=== PATIENT | female | born 1940 | race Caucasian/White ===

== ENCOUNTER 2021-05-08 06:33 | Day surgery (SDC) | payer OTHER ==
--- NOTE | 2021-05-07 13:00 | RAD REPORT ---
EXAM DESCRIPTION: RAD - Chest Pa And Lat (2 Views) - 05/07/2021 12:43 pm CLINICAL HISTORY: PREOP Chest pain. COMPARISON: Abdomen 1 View (KUB) dated 03/19/2017; CHEST PA AND LAT 2 VIEW dated 12/14/2014 FINDINGS: Mild emphysematous changes are present. Mild focal opacity is present in the right apex, a ppearing more prominent than on comparative study. Follow-up CT chest is recommended. The heart is no rmal in size.
[2021-05-08] MEDS ORDERED: Ringers Lactate 1,000 ML IV ONE (06:59)
[2021-05-08] MEDS ORDERED: CEFAZOLIN/SWI 2gm 2 GM/20 ML SYR ONE (06:59)
[2021-05-08] MEDS ORDERED: FENTANYL CITR 100 MCG/2 ML ONE ×2 (07:44→07:50)
[2021-05-08] MEDS ORDERED: propofoL 200 MG/20 ML VIAL IV ONE (07:44)
[2021-05-08] MEDS ORDERED: LIDOCAINE 1% MPF 5 ML VIAL ONE (07:44)
[2021-05-08] MEDS ORDERED: dexAMETHasone 10 MG/ML VIAL ONE (08:19)
[2021-05-08] MEDS: HYDROMORPHONE HCL 1 MG/ML INJ ONE ×4 (08:20→08:55)
[2021-05-08] MEDS ORDERED: ONDANSETRON 4 MG/2 ML VIAL ONE (08:20)
[2021-05-08] MEDS ORDERED: ACETAMINOPHEN 325 MG TABLET ONE (08:57)
[2021-05-08] MEDS ORDERED: ACETAMINOPHEN 325 MG TABLET PO PRN (09:09)
--- NOTE | 2021-05-08 09:31 | RAD REPORT ---
EXAM DESCRIPTION: RAD - Urethrocystogrphy Retrograde - 05/08/2021 8:20 am CLINICAL HISTORY: cysto with retrograde COMPARISON: No comparisons FINDINGS: Total fluoro time: 23 seconds
[2021-05-08 10:02] VITALS: TEMP 98.1
[2021-05-08 11:19] VITALS: BP 179/64; O2SAT 100
--- NOTE | 2021-05-09 07:42 | OP ---
Date of Procedure: 05/08/2021 Surgeon: EVELIA PETERS Preoperative Diagnosis: Left hydronephrosis. Postoperative Diagnosis: Normal. Principal Procedures: 1.Cystoscopy. 2.Left retrograde pyelography. 3.[place] cystography. Indication For Procedure: Mrs. Groves presented to the Urology Clinic and saw a nurse practitioner, Mj with an ultrasound that reportedly revealed left-sided hydronephrosis. Subsequent CT imagi ng was obtained at an outside facility, whose images were unavailable for my review. Despite a CD pr ovided and attempts to upload the images both at the outpatient clinic site as well as here in the [facility], we were unable to do so; hence we relied on the report. Procedure In Detail: The patient was consented in the preoperative holding area prior to being trans ferred to operative suite where general anesthesia was induced. She was given 2 g Ancef IV antimicro bial prophylaxis and pneumo boot was provided on the left lower extremity for DVT prophylaxis. Of no te, she had cellulitis on the right lower extremity, which prohibited placement of a IMELDA hose or SCD there. She was placed in the lithotomy position, padded and secured to the table appropriately. The case was begun using a 22-Hong Konger rigid cystoscope to traverse the urethra and into the bladder with ease. The urethra was orthotopic. The urethral meatus was orthotopic in location and there were no strictures within. The bladder was entered and was completely decompressed off urine. I then backfi lled the bladder with saline and surveyed it in its entirety. The ureteral orifices were orthotopic in location bilaterally and of note, the left ureteral orifice did efflux nicely with a bolus of roxana r yellow urine. The remainder of the bladder was free of any mucosal lesions, foreign bodies, or sto kev throughout. As a result, I then cannulated the ureteral orifice with a tip of a 5-Hong Konger uretera l access catheter using a Sensor wire as a guide. A retrograde pyelogram was then performed. Left retrograde pyelography: Using a 70:30 mixture of Omnipaque and saline, contrast was injected via the lumen of the 5-Hong Konger ur eteral access catheter and did propagate up a nondilated ureter before entering a nondilated renal pe lvis with a bifid upper pole versus lower and mid pole calyceal distributions. The calices were all sharp, without any blunting or caliectasis noted. Contrast did promptly efflux from the system even between the bolus given at 7:54 a.m. and a bolus given again at 7:55 a.m. to more completely delineat e each aspect of the collecting systems, completely, especially the upper pole, which was . Some pyelovenous reflux was noted at that time, but then observation was undertaken. Over the cours e of the next 10 minutes, the left collecting system had eliminated over 50% and likely greater than 75% of the contrast was injected by qualitative assessment. No contrast was located within the renal pelvis or within the ureter and the contrast within the calices due to the pyelovenous efflux was al so eliminated within the 10 minute period leaving less than probably 20% of the contrast at that poin t. As a result, there was no evidence of any significant obstruction on the left side both anatomica lly and functionally. I then talked to assess whether there might be reflux potentially causing the hydronephrosis. I then placed a 16-Hong Konger urethral Bland catheter into her bladder and decompressed it off the fluid and urine within as well as the contrast that had collected from the left collecting system. I then backfilled her bladder with a mixture of Omnipaque and saline up to 500 cc. Throughout the filling, there was no evidence of any reflux of contrast and with the bladder completely full with 500 cc, no definitive reflux was seen and the left kidney continued to drain the remainder of the contrast. As a result, there was absolutely no sign of any obstruction or hydronephrosis to explain that seen on h er preoperative imaging at an outside facility. The patient was then awakened from general anesthesi a, transferred to a stretcher and then to the recovery room in good condition. Complications: None. 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 WR/MODL Voice ID: [id number] Report ID: [id number]
== END 2021-05-08 10:41 | disposition home or self-care (01) ==
LOC: OR 06:33
PROVIDERS: ATTEND Urology
DX: N13.30 Unspecified hydronephrosis (principal)
CPT/HCPCS: 71046; 74450; 51610; J2704; J3010; J1100; J1170 ×2; J0690; J7120; J2405

== ENCOUNTER 2023-09-24 10:30 | Day surgery (SDC) | payer OTHER ==
[2023-09-22 16:05] LABS: Protime INR 1.49
[2023-09-22 16:07] LABS: Potassium 4.6 mEq/L (3.5-5.1)
[2023-09-22 16:08] LABS: Absolute Lymphocytes (CBC) 0.8 K/uL (0.7-4.9); Hematocrit 33.6 % (36.0-45.0); Lymphocytes % 14.1 % (15.3-44.8); MCV 94.7 fL (80-100); MPV 7.2 fL (7.6-11.3); Platelets 225 thou/uL (152-406); RBC Red Blood Cell Count 3.55 M/uL (3.86-4.86)
--- NOTE | 2023-09-22 16:16 | RAD REPORT ---
EXAM DESCRIPTION: RAD - Chest Pa And Lat (2 Views) - 09/22/2023 3:52 pm CLINICAL HISTORY: Pre op pending heart catheterization Chest pain. COMPARISON: Chest Pa And Lat (2 Views) dated 05/07/2021; Abdomen 1 View (KUB) dated 03/19/2017; CHEST PA AND LAT 2 VIEW dated 12/14/2014 FINDINGS: The lungs are emphysematous but clear. The heart is mildly enlarged in size. No displaced fractures. Small hiatal hernia. IMPRESSION: Prominent diffuse COPD. The USPSTF recommends annual screening for lung cancer with low-dose CT (LDCT) in adults aged 50 to 8 0 years who have a 20 pack-year smoking history and currently smoke or have quit within the past 15 y ears.
--- NOTE | 2023-09-23 13:28 | EKG ---
Test Date: 2023-09-22 Test Time: 16:26:32 Director Summer Sessions: CHANELL MEASUREMENT RESULTS: Intervals: Rate: 62 NC: 222 QRSD: 92 QT: 426 QTc: 432 [place]: P: 90 NC: 222 QRS: 71 T: 75 INTERPRETIVE STATEMENTS: Sinus rhythm with 1st degree AV block with premature supraventricular complexes Septal infarct, age undetermined Abnormal ECG Compared to ECG 04/30/2009 18:11:19 Atrial premature complex(es) now present First degree AV block now present Myocardial infarct finding now present Sinus bradycardia no longer present Electronically Signed On 09-23-23 13:26:28 INDEPENDENT LIVING INSTRUCTOR by Carlos Lorenzana
[2023-09-24] MEDS ORDERED: VERAPAMIL HCL 10 MG/4 ML VIAL IV ONE (10:44)
[2023-09-24] MEDS ORDERED: LIDOCAINE 1% 20 ML MDV ONE (10:44)
[2023-09-24] MEDS ORDERED: MIDAZOLAM HCL 2 MG/2 ML INJ ONE (10:45)
[2023-09-24] MEDS ORDERED: FENTANYL CITR 100 MCG/2 ML ONE (10:45)
[2023-09-24] MEDS ORDERED: ATROPINE SULF 1 MG/10 ML SYR IV ONE (10:46)
[2023-09-24] MEDS ORDERED: HEPARIN 10,000 UNIT/10 ML VIAL IV ONE (10:47)
[2023-09-24] MEDS ORDERED: TICAGRELOR 90 MG TABLET PO ONE (10:48)
[2023-09-24] MEDS ORDERED: HEPA 1000U/500MLS 2,000 UNIT/1,000 ML BAG IV ONE (10:48)
[2023-09-24] MEDS ORDERED: CLOPIDOGREL 75 MG TABLET ONE (10:48)
[2023-09-24] MEDS ORDERED: HEPARIN 5000 UNIT/ML 1 ML VIAL ONE (10:50)
[2023-09-24] MEDS ORDERED: ASPIRIN 325 MG TAB ONE (10:50)
[2023-09-24] MEDS ORDERED: NA CHLORIDE 0.9% 500 ML ONE (11:19)
[2023-09-24 11:31] VITALS: TEMP 98.7
[2023-09-24] MEDS ORDERED: HYDRALAZINE HCL 20 MG/ML VIAL ONE (15:04)
--- NOTE | 2023-09-24 16:19 | OP ---
Date of Procedure: 09/24/2023 Surgeon: WILLAM ANTONIO Procedures Performed: 1.Selective coronary angiogram. 2.Left heart catheterization. 3.Right heart catheterization. Indications: Significant shortness of breath and pre-mitral valve surgery. Access: 1.Right radial artery 6-Hong Konger closed with TR band. 2.Right IJ 7-Hong Konger closed with manual pressure. Complications: None. Bleeding: Less than 20 mL. Description Of Procedure: After risks, benefits, alternatives were explained, patient agreed to proc edure, signed informed consent. Patient was brought into cardiac catheterization laboratory, prepped and draped in usual sterile fashion. Then, I accessed right radial artery using pediatric micropunc ture kit, placed a 6-Hong Konger Slender sheath and then I accessed the right IJ using micropuncture kit, ultrasound guidance, and placed a 7-Hong Konger Buckhorn sheath and then I took a 7-Hong Konger balloon-tipped [place] catheter through the IJ access into the right atrium, right ventricle, pulmonary artery and wedg e, obtained waveform and pressure and then obtained a thermodilutional cardiac output and then remove d the [place] and then took a 5-Hong Konger [place] 4.0 catheter over a J-wire through the radial access into t he aortic root, engaged the left main, then the right coronary artery, took standard views. Then the catheter was pushed over the wire to measure the LVEDP. Pullback did not record any gradient. I re moved the catheter and the sheath, placed TR band with good hemostasis. Findings: 1.Coronary angiogram. a.Left main is normal. b.LAD; proximal segment is normal. There is mild 20% to 30% mid LAD stenosis. Diagonal branch has about 30% to 40% stenosis. c.Left circumflex; small, nondominant with no significant disease. d.RCA; large and dominant with no significant disease. e.Elevated LVEDP at 15 mmHg. 2.Right heart cath: The RA pressure was 6. RV pressure was 37/2, mean of 6, and PA pressure was 32 /11, mean of 22. Pulmonary wedge pressure was 10, and LVEDP was 15 mmHg. Cardiac output was 5.93 L/ minute. Conclusion: 1.Mild nonobstructive coronary artery disease. 2.Slightly elevated filling pressures. Recommendation: Medical management. SR/MODL Voice ID: [id number] Report ID: [id number]
[2023-09-24 17:04] VITALS: BP 130/50; O2SAT 100
== END 2023-09-24 17:11 | disposition home or self-care (01) ==
LOC: CCL 10:30
PROVIDERS: ATTEND Internal Medicine
DX: I25.110 Atherosclerotic heart disease of native coronary artery with unstable angina pectoris (principal); I34.2 Nonrheumatic mitral (valve) stenosis; I48.0 Paroxysmal atrial fibrillation; I10 Essential (primary) hypertension; Z79.01 Long term (current) use of anticoagulants; Z79.899 Other long term (current) drug therapy; Z88.8 Allergy status to other drugs, medicaments and biological substances
CPT/HCPCS: 93005; 85025; 80048; 36415; 83721; 85610; 85730; 71046; 93460; 76937; C1893; Q9966; J1644; J0360; J2001; J2250; J3010; J7040; 99152; 99153; J0461

== ENCOUNTER 2023-11-08 17:25 | Inpatient (IN) | payer OTHER ==
--- NOTE | 2023-11-08 19:38 | P.HP ---
Certification for Inpatient Patient admitted to: Observation With expected LOS: <2 Midnights Practitioner: I am a practitioner with admitting privileges, knowledge of patient current condition, hospital course, and medical plan of care. Services: Services provided to patient in accordance with Admission requirements found in Title 42 Section 412.3 of the Code of Federal Regulations Patient History Date of Service: 11/09/23 Reason for admission: Rapid atrial fibrillation History of Present Illness: 83-year-old female patient with medical history significant for hypertension, chronic atrial fibrillation, hyperlipidemia, history of restless leg syndrome who came to the ED with complaint of shortness of breath, chest pain and palpitation. She was seen [facility] and she had episode of shortness of breath and rapid heartbeat and was started on rate control medication. She was transferred to [facility] for inpatient care. She follows up with wall washer Dr. Lorenzana for heart condition. On arrival to the ICU ED she was already in sinus rhythm and was chest pain-free. She denies overt episode of cough, fever, chills, rigor, nausea, vomiting. Allergies diltiazem Allergy (Verified 09/22/23 15:11) Rash hydrochlorothiazide Allergy (Verified 09/22/23 15:11) Rash indomethacin [From Indocin] Allergy (Verified 09/22/23 15:11) Heart issues niacin Allergy (Verified 09/22/23 15:11) Burning sensation all over propoxyphene [From Darvon] Allergy (Verified 09/22/23 15:11) Nausea/Vomiting Home Medications: Acetaminophen [Tylenol Extra Strength] 2 tab PO BID 05/07/21 Cyanocobalamin (Vitamin B-12) [Cyanocobalamin Injection] 1,000 mcg IJ MO 05/07/21 Famotidine [Pepcid*] 20 mg PO DAILY 05/07/21 Fluticasone Propion/Salmeterol [Airduo Digihaler 232-14 Mcg] 1 puff IH BID 05/07/21 Losartan Potassium [Cozaar*] 100 mg PO BEDTIME 05/07/21 Montelukast [Singulair*] 10 mg PO DAILY 05/07/21 Rivaroxaban [Xarelto*] 15 mg PO BEDTIME 05/07/21 Zolpidem Tartrate [Ambien*] 5 mg PO BEDTIME 05/07/21 Albuterol Sulfate [Albuterol Sulfate Hfa] 2 inh IH Q4HP PRN 11/08/23 Amlodipine [Norvasc] 2.5 mg PO DAILYPRN PRN 11/08/23 Furosemide 20 mg PO DAILY 11/08/23 Ipratropium [Atrovent 0.03% (21MCG)/[place] Nasal] 1 sprays NS DAILY 11/08/23 Potassium Chloride 10 meq PO DAILY 11/08/23 Vit D3 1 tab PO DAILY 11/08/23 levalbuterol HCL [Levalbuterol HCl] 1.25 mg IH TIDP PRN 11/08/23 methocarbamoL [Methocarbamol] 1,000 mg PO BID 11/08/23 predniSONE [Deltasone] 10 mg PO PRN PRN 11/08/23 - Family History Father -: Hypertension, Stroke Mother -: Other (see notes) Notes: COPD, tobacco user Review of Systems General: Unremarkable Eyes: Unremarkable ENT: Unremarkable Respiratory: Shortness of Breath, SOB with Excertion Cardiovascular: Chest Pain, Palpitations Gastrointestinal: Unremarkable Genitourinary: Unremarkable Musculoskeletal: Unremarkable Integumentary: Unremarkable Neurological: Unremarkable Lymphatics: Unremarkable Physical Examination - Physical Exam General: Alert, Oriented x3 HEENT: Atraumatic Respiratory: Normal air movement Cardiovascular: Regular rate/rhythm, Normal S1 S2 Gastrointestinal: Soft and benign Musculoskeletal: No swelling Neurological: Normal speech, Normal strength at 5/5 x4 extr Assessment and Plan - Plan Atrial fibrillation with rapid ventricular response: Presently patient is back in sinus rhythm while on amiodarone drip. Continue anticoagulation with Xarelto. Continue rate control medication amiodarone. Some concerns for ACS entertained, will trend troponin. Cardiology consultation placed for management recommendation. History of hypertension: Monitor vital signs per unit protocol and continue outpatient antihypertensive medications Hyperlipidemia: We will continue statin therapy. Prophylaxis: Xarelto for A-fib anticoagulation and for DVT prophylaxis. CODE STATUS: Full code. Disposition: We will treat her rapid A-fib and she was discharged in clinically stable. - Advance Directives Does patient have a Living Will: Yes Does patient have a Durable POA for Healthcare: Yes
[2023-11-08] MEDS ORDERED: AMIODARONE HCL 450 MG in D5W 241 ML IV SCH (20:00)
[2023-11-08] MEDS ORDERED: AMIODARONE IN DEXTROSE,ISO-OSM 360 MG/200 ML BAG IV SCH (20:00)
[2023-11-08] MEDS ORDERED: methocarbamoL 500 MG TAB PO SCH (21:00)
[2023-11-08] MEDS ORDERED: RIVAROXABAN 15 MG TABLET PO SCH (21:00)
[2023-11-08] MEDS ORDERED: [UNRECOGNIZED DRUG - OTHER] IH SCH (21:00)
[2023-11-08] MEDS ORDERED: SALMETEROL IH SCH (21:00)
[2023-11-08] MEDS ORDERED: LOSARTAN POTASSIUM 50 MG TABLET PO SCH ×2 (21:00)
[2023-11-08] MEDS ORDERED: ACETAMINOPHEN 500 MG TAB PO SCH (21:00)
[2023-11-08] MEDS ORDERED: ACETAMINOPHEN 500 MG TAB ONE (21:07)
[2023-11-08] MEDS ORDERED: methocarbamoL 500 MG TAB ONE (21:08)
[2023-11-08 21:58] VITALS: O2SAT 100; BMI 26.2
[2023-11-09 00:53] VITALS: TEMP 97.3
[2023-11-09] MEDS ORDERED: AMIODARONE IN DEXTROSE,ISO-OSM 360 MG/200 ML BAG IV SCH (02:05)
[2023-11-09 03:02] LABS: Specific Gravity 1.018 (1.005-1.030); Urine Bilirubin NEGATIVE (Negative); Urine Blood Negative (Negative); Urine Clarity Clear (Clear); Urine Color Light-Yellow (Yellow); Urine Glucose NEGATIVE (Negative); Urine Protein NEGATIVE (Negative); Urine Urobilinogen Normal (Normal)
[2023-11-09 04:56] VITALS: BP 155/63
[2023-11-09] MEDS ORDERED: FAMOTIDINE 20 MG TAB PO SCH (09:00)
[2023-11-09] MEDS ORDERED: MONTELUKAST 10 MG TAB PO SCH (09:00)
== END 2023-11-09 06:15 | disposition left against medical advice (07) | DRG 310 ==
LOC: 3RD-ICU 18:58
PROVIDERS: ADMIT Hospitalist; ATTEND Hospitalist
DX: I48.20 Chronic atrial fibrillation, unspecified (principal); I10 Essential (primary) hypertension; E78.5 Hyperlipidemia, unspecified; G25.81 Restless legs syndrome; Z88.8 Allergy status to other drugs, medicaments and biological substances; Z53.29 Procedure and treatment not carried out because of patient's decision for other reasons; Z79.01 Long term (current) use of anticoagulants; Z79.52 Long term (current) use of systemic steroids; Z79.899 Other long term (current) drug therapy
CPT/HCPCS: 81003; J0282

== ENCOUNTER 2024-06-25 11:09 | Emergency (ER) | payer OTHER ==
[2024-06-25] MEDS ORDERED: ASPIRIN 81 MG CHEWABLE TABLET ONE (11:33)
[2024-06-25 11:37] LABS: Absolute Eosinophils 0.2 K/uL (0-0.5); Absolute Monocytes 0.8 K/uL (0.1-1.3); Absolute Neutrophil 3.5 K/uL (1.8-8.0); Basophils % 0.3 % (0-1.3); Eosinophils % 3.2 % (0-4.4); Hematocrit 35.5 % (36.0-45.0); Hemoglobin 11.8 g/dL (12.0-15.0); MCH 31.2 pg (27.0-35.0); MCHC 33.2 g/dL (32.0-36.0); MCV 94.1 fL (80-100); MPV 7.3 fL (7.6-11.3); Monocytes % 13.9 % (3.3-12.3); Neutrophils % 63.6 % (41.7-73.7); Platelets 233 thou/uL (152-406); RBC Red Blood Cell Count 3.78 M/uL (3.86-4.86); Red Cell Distribution Width 12.4 % (12.1-15.2)
[2024-06-25 11:39] LABS: PT Prothrombin Time 23.1 SECONDS (9.4-12.5); Protime INR 2.11
[2024-06-25 11:57] LABS: ALT/SGPT 25 U/L (13-56); AST/SGOT 19 U/L (15-37); Albumin 3.8 g/dL (3.4-5.0); Albumin/Globulin Ratio 1.1 (1.1-1.8); Alkaline Phosphatase 80 U/L (45-117); Anion Gap 10.2 mEq/L (5.0-15.0); BUN Blood Urea Nitrogen 30 mg/dL (7-18); Bicarbonate 25 mEq/L (21-32); Bilirubin Total 0.5 mg/dL (0.2-1.0); Globulin 3.5 g/dL (2.3-3.5); Glomerular Filtration Rate 34 ml/min (=/>90); Glucose Level 123 mg/dL (74-106); Magnesium 2.4 mg/dL (1.6-2.4); NT PRO-BNP 2354 pg/mL (<450); Potassium 4.2 mEq/L (3.5-5.1); Protein, Total 7.3 g/dL (6.4-8.2); Sodium Level 133 mEq/L (136-145); Troponin High Sensitivity 21.1 pg/mL (<58.9)
[2024-06-25 11:59] LABS: Bilirubin Direct < 0.2 mg/dL (0-0.2); Bilirubin Indirect, Calculated 0.3 mg/dL (0.2-0.8)
--- NOTE | 2024-06-25 12:45 | RAD REPORT ---
EXAM DESCRIPTION: RADChest Single View06/25/2024 12:34 pm CLINICAL HISTORY: CHEST PAIN COMPARISON: Chest Pa And Lat (2 Views) dated 09/22/2023; Chest Pa And Lat (2 Views) dated 05/07/2021; Abdomen 1 View (KUB) dated 03/19/2017; CHEST PA AND LAT 2 VIEW dated 12/14/2014 TECHNIQUE: Portable AP view of the chest. FINDINGS: The lungs are clear, although soft tissue density related to breast implants again limits evaluation in the lung bases. No pneumothorax or effusion. The cardiomediastinal contours are unrema rkable. IMPRESSION: No acute cardiopulmonary process.
--- NOTE | 2024-06-25 12:55 | EDPHYS ---
Physician Documentation [facility] Name: Karly Groves Age: 83 yrs Sex: Female : 1940 Arrival Date: 06/25/2024 Time: 11:09 Bed 5 Private MD: ED Physician Bethel Rosas HPI: 06/25 11:53 This 83 yrs old Female presents to ER via Ambulatory with complaints of Chest Pain, ms3 Shortness Of Breath. 11:53 83-year-old female with past medical history of hypertension, atrial fibrillation ms3 presents to the emergency department for tachycardia that began at 1 AM. Patient states at that time she took 25 mg of metoprolol and amiodarone. Patient states on waking up this morning her heart rate felt irregular, she was dizzy and short of breath. Patient notes she had difficulty standing as she is weak. She states she is having chest heaviness she rates a 3/10. She denies any alleviating or inciting factors.. Historical: - Allergies: 11:25 Darvon; ld1 11:25 Diltiazem; ld1 11:25 Niacin; ld1 11:25 Hydrochlorothiazide; ld1 - Home Meds: 11:25 Xarelto oral [Active]; ld1 - PMHx: 11:25 Hypertensive disorder; Atrial fibrillation; ld1 - Immunization history:: Adult Immunizations up to date. - Infectious Disease History:: Denies. - Social history:: Smoking status: Patient denies any tobacco usage or history of. ROS: 11:53 Constitutional: Negative for fever, and chills. ms3 11:53 Abdomen/GI: Negative for abdominal pain, nausea, vomiting, diarrhea, and constipation, MS/Extremity: Negative for injury and deformity, Skin: Negative for injury, rash, and discoloration, 11:53 Cardiovascular: Positive for chest pain, palpitations, 11:53 Respiratory: Positive for shortness of breath, Exam: 11:53 Constitutional: This is a well developed, well nourished patient who is awake, alert, ms3 and in no acute distress. Chest/axilla: Normal chest wall appearance and motion. Nontender with no deformity. Cardiovascular: Regular rate and rhythm with a normal S1 and S2. No gallops, murmurs, or rubs. Normal PMI, no JVD. No pulse deficits. Respiratory: Lungs have equal breath sounds bilaterally, clear to auscultation and percussion. No rales, rhonchi or wheezes noted. No increased work of breathing, no retractions or nasal flaring. Abdomen/GI: Soft, non-tender, with normal bowel sounds. No distension or tympany. No guarding or rebound. No evidence of tenderness throughout. Skin: Warm, dry with normal turgor. Normal color with no rashes, no lesions, and no evidence of cellulitis. 11:56 ECG was reviewed by the Attending Physician. ms3 Vital Signs: 11:24 BP 173 / 77; Pulse 60; Resp 18; Temp 98.1(O); Pulse Ox 100% on R/A; Weight 73.48 kg; ld1 Height 5 ft. 4 in. ; Pain 3/10; 12:01 BP 140 / 73; Pulse 67; Resp 17; Pulse Ox 99% on R/A; rs5 13:00 BP 145 / 71; Pulse 65; Resp 18; Pulse Ox 99% on R/A; rs5 11:24 Body Mass Index 27.81 (73.48 kg, 162.56 cm) ld1 11:24 Pain Scale: Adult ld1 MDM: 11:31 Patient medically screened. ms3 11:53 Differential diagnosis: abnormal EKG, acute myocardial infarction, stable angina, ms3 unstable angina. 12:51 HEART Score: History: Slightly Suspicious (0), ECG: Normal (0), Age: > or = 65 years ms3 (2), Risk Factors: 1 or 2 risk factors (1), Troponin: < or = 1 x Normal Limit (0), Total Score = 3. The patient was given aspirin in the Emergency Department. Data reviewed: vital signs, nurses notes, lab test result(s), EKG, radiologic studies, and as a result, I will discharge patient. Consideration of Admission/Observation Escalation of care including admission/observation considered. Patient declines to stay.. Management of patient was discussed with the following: Taproom Attendant: Dr Mcadams- Patient to call office for appointment next week. I considered the following discharge prescriptions or medication management in the emergency department Medications were administered in the Emergency Department. See MAR. Independent interpretation of the following test(s) in the Emergency Department EKG: See my EKG interpretation above X-Ray: My interpretation is CXR image reviewed by me does not reveal pna. Counseling: I had a detailed discussion with the patient and/or guardian regarding the historical points, exam findings, and any diagnostic results supporting the discharge/admit diagnosis, lab results, radiology results, the need for outpatient follow up, to return to the emergency department if symptoms worsen or persist or if there are any questions or concerns that arise at home. Refusal of service: The patient/guardian displays adequate decision making capability and despite a detailed discussion of alternatives, benefits, risks, and consequences refuses: Admission to the hospital for further work-up and treatment. ED course: Discussed necessity for observation with patient and patient declines. Discussed risks of missed myocardial infarction, , disability, worsening of current condition. Patient understands and agrees with plan. Patient accepts risks. On reevaluation patient is alert, no apparent distress, nontoxic-appearing, speaking full sentences. Patient to call Dr. Mcadams's office for follow-up next week.. 06/25 11:16 Order name: Basic Metabolic Panel; Complete Time: 12:06 ms3 06/25 11:16 Order name: CBC with Diff; Complete Time: 11:50 ms3 06/25 11:16 Order name: LFT's; Complete Time: 12:06 ms3 06/25 11:16 Order name: Magnesium; Complete Time: 12:06 ms3 06/25 11:17 Order name: NT PRO-BNP; Complete Time: 12:06 ms3 06/25 11:17 Order name: PT-INR; Complete Time: 11:50 ms3 06/25 11:17 Order name: Troponin HS; Complete Time: 12:06 ms3 06/25 11:17 Order name: XRAY Chest (1 view); Complete Time: 12:48 ms3 06/25 11:17 Order name: Cardiac monitoring; Complete Time: 11:51 ms3 06/25 11:17 Order name: EKG - Nurse/Tech; Complete Time: 11:51 ms3 06/25 11:17 Order name: IV Saline Lock; Complete Time: 11: ms3 06/25 11:17 Order name: Labs collected and sent; Complete Time: 11:51 ms3 06/25 11:17 Order name: O2 Per Protocol; Complete Time: 11:51 ms3 06/25 11:17 Order name: O2 Sat Monitoring; Complete Time: 11:51 ms3 EC:56 Rate is 59 beats/min. Rhythm is regular. QRS [place] is Normal. NM interval is normal. QRS ms3 interval is normal. T waves are Peaked. Clinical impression: NSR w/ Non-specific ST/T Changes. Interpreted by me. Reviewed by me. Administered Medications: 11:30 Drug: Aspirin PO Chewable Tablet 324 mg PO once; 81 mg tablets x 4 Route: PO; rs5 12:20 Follow up: Response: No adverse reaction rs5 Disposition Summary: 06/25/24 12:54 Discharge Ordered Notes: Location: Home ms3 Condition: Stable ms3 Diagnosis - Palpitations ms3 - Chest pain, unspecified ms3 Followup: ms3 - With: Carlos Lorenzana MD - When: 2 - 3 days - Reason: Recheck today's complaints Discharge Instructions: - Discharge Summary Sheet ms3 - Nonspecific Chest Pain, Adult ms3 - Palpitations ms3 Forms: - Medication Reconciliation Form ms3 - Antibiotic Education ms3 - Prescription Opioid Use ms3 - Patient Portal Instructions ms3 - Leadership Thank You Letter ms3 Signatures: Dispatcher [employer] EDMS Bethel Rosas DO DO ms3 Kristan Rosas, RN RN ld1 Nba Collins, RN RN rs5 Corrections: (The following items were deleted from the chart) 11:17 11:17 BASIC METABOLIC PANEL+C.LAB.BRZ ordered. EDMS EDMS 11:17 11:17 CBC+H.LAB.BRZ ordered. EDMS EDMS 11:17 11:17 HEPATIC FUNCTION+C.LAB.BRZ ordered. EDMS EDMS 11:17 11:17 MAGNESIUM+C.LAB.BRZ ordered. EDMS EDMS 11:17 11:17 PROBNP+C.LAB.BRZ ordered. EDMS EDMS 11:17 11:17 PROTIME (+INR)+COAG.LAB.BRZ ordered. EDMS EDMS 11:17 11:17 Troponin High Sensitivity+C.LAB.BRZ ordered. EDMS EDMS 11:17 11:17 Chest Single View+RAD.RAD.BRZ ordered. EDMS EDMS
--- NOTE | 2024-06-25 12:55 | ER ---
Nurse's Notes [facility] Name: Karly Groves Age: 83 yrs Sex: Female : 1940 Arrival Date: 06/25/2024 Time: 11:09 Bed 5 Private MD: Diagnosis: Palpitations;Chest pain, unspecified Presentation: 06/25 11:24 Chief complaint: Patient states: Chest pain and SOB. Coronavirus screen: At this time, ld1 the client does not indicate any symptoms associated with coronavirus-19. Ebola Screen: No symptoms or risks identified at this time. Initial Sepsis Screen: Does the patient meet any 2 criteria? No. Patient's initial sepsis screen is negative. Does the patient have a suspected source of infection? No. Patient's initial sepsis screen is negative. Risk Assessment: Do you want to hurt yourself or someone else? Patient reports no desire to harm self or others. Onset of symptoms was June 25, 2024. 11:24 Method Of Arrival: Ambulatory ld1 11:24 Acuity: BRADY 3 ld1 Triage Assessment: 11:25 General: Appears in no apparent distress. uncomfortable, Behavior is calm, cooperative, ld1 appropriate for age. Pain: Complains of pain in chest Pain does not radiate. Pain currently is 3 out of 10 on a pain scale. Quality of pain is described as heavy, Pain began 2 hours ago. Is continuous. EENT: No signs and/or symptoms were reported regarding the EENT system. Neuro: Level of Consciousness is awake, alert, obeys commands, Oriented to person, place, time, situation, Appropriate for age. Cardiovascular: Capillary refill < 3 seconds Patient's skin is warm and dry. Rhythm is sinus rhythm. Respiratory: Airway is patent Respiratory effort is even, labored. Respiratory: Reports shortness of breath at rest on exertion. GI: Abdomen is round non-distended. : No signs and/or symptoms were reported regarding the genitourinary system. Derm: No signs and/or symptoms reported regarding the dermatologic system. Musculoskeletal: No signs and/or symptoms reported regarding the musculoskeletal system. Historical: - Allergies: 11:25 Darvon; ld1 11:25 Diltiazem; ld1 11:25 Niacin; ld1 11:25 Hydrochlorothiazide; ld1 - Home Meds: 11:25 Xarelto oral [Active]; ld1 - PMHx: 11:25 Hypertensive disorder; Atrial fibrillation; ld1 - Immunization history:: Adult Immunizations up to date. - Infectious Disease History:: Denies. - Social history:: Smoking status: Patient denies any tobacco usage or history of. Screenin:20 [facility] ED Fall Risk Assessment (Adult) History of falling in the last 3 months, rs5 including since admission No falls in past 3 months (0 pts) Confusion or Disorientation No (0 pts) Intoxicated or Sedated No (0 pts) Impaired Gait Yes (1 pt) Mobility Assist Device Used Yes (1 pt) Altered Elimination No (0 pt) Score/Fall Risk Level 0 - 2 = Low Risk Oriented to surroundings, Maintained a safe environment. Abuse screen: Denies threats or abuse. Nutritional screening: No deficits noted. Tuberculosis screening: No symptoms or risk factors identified. Assessment: 11:20 General: Appears in no apparent distress. uncomfortable, Behavior is cooperative, rs5 anxious. Pain: Complains of pain in chest Pain currently is 8 out of 10 on a pain scale. Quality of pain is described as aching, Is continuous. Neuro: Level of Consciousness is awake, alert, obeys commands, Oriented to person, place, time, situation. Cardiovascular: Patient's skin is warm and dry. Respiratory: Airway is patent Respiratory effort is even, unlabored, Respiratory pattern is regular, symmetrical. GI: Abdomen is round non-distended, Abd is soft and non tender X 4 quads. : No signs and/or symptoms were reported regarding the genitourinary system. EENT: No signs and/or symptoms were reported regarding the EENT system. Derm: Skin is intact, Skin is pink, warm \T\ dry. Musculoskeletal: Range of motion: intact in all extremities. 12:22 Reassessment: Patient and/or family updated on plan of care and expected duration. Pain rs5 level reassessed. Patient is alert, oriented x 3, equal unlabored respirations, skin warm/dry/pink. Patient denies pain at this time. Patient states feeling better. Patient states symptoms have improved. 13:00 Reassessment: No changes from previously documented assessment. rs5 Vital Signs: 11:24 BP 173 / 77; Pulse 60; Resp 18; Temp 98.1(O); Pulse Ox 100% on R/A; Weight 73.48 kg; ld1 Height 5 ft. 4 in. ; Pain 3/10; 12:01 BP 140 / 73; Pulse 67; Resp 17; Pulse Ox 99% on R/A; rs5 13:00 BP 145 / 71; Pulse 65; Resp 18; Pulse Ox 99% on R/A; rs5 11:24 Body Mass Index 27.81 (73.48 kg, 162.56 cm) ld1 11:24 Pain Scale: Adult ld1 ED Course: 11:12 Patient arrived in ED. ra3 11:12 Bethel Rosas DO is Attending Physician. ms3 11:16 Nba Collins, RN is Primary Nurse. rs5 11:20 Patient has correct armband on for positive identification. Placed in gown. Bed in low rs5 position. Call light in reach. Side rails up X2. Client placed on continuous cardiac and pulse oximetry monitoring. NIBP monitoring applied. 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 11:20 Inserted saline lock: 20 gauge in right antecubital area, using aseptic technique. rs5 Blood collected. Flushed with 10 mL NS. 11:20 Patient maintains SpO2 saturation greater than 95% on room air. rs5 11:20 No provider procedures requiring assistance completed. rs5 11:25 Triage completed. ld1 11:25 Arm band placed on right wrist. ld1 12:36 XRAY Chest (1 view) In Process Unspecified. EDMS 12:54 Carlos Lorenzana MD is Referral Physician. ms3 13:05 IV discontinued, intact, bleeding controlled, No redness/swelling at site. Pressure rs5 dressing applied. Administered Medications: 11:30 Drug: Aspirin PO Chewable Tablet 324 mg PO once; 81 mg tablets x 4 Route: PO; rs5 12:20 Follow up: Response: No adverse reaction rs5 Medication: 13:00 VIS not applicable for this client. rs5 Outcome: 12:54 Discharge ordered by . ms3 13:05 Discharged to home ambulatory, rs5 13:05 Condition: stable rs5 13:05 Discharge instructions given to patient, family, Instructed on discharge instructions, follow up and referral plans. Demonstrated understanding of instructions, follow-up care, 13:07 Patient left the ED. rs5 Signatures: Dispatcher [employer] EDUT Bethel Rosas DO DO ms3 Kristan Rosas, RN RN ld1 Nba Collins, RN RN rs5 Georgiana Mcfadden ra3
[2024-06-25 13:27] VITALS: BP 173/77; TEMP 98.1; O2SAT 100
--- NOTE | 2024-06-28 17:09 | EKG ---
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
== END 2024-06-25 13:07 | disposition home or self-care (01) ==
LOC: ER 11:09
DX: R07.9 Chest pain, unspecified (principal); R00.2 Palpitations; I10 Essential (primary) hypertension; I48.91 Unspecified atrial fibrillation; Z79.01 Long term (current) use of anticoagulants
CPT/HCPCS: 36415; 71045; 80048; 80076; 83735; 83880; 84484; 85025; 85610; 93005; 99284

== ENCOUNTER 2024-09-14 01:40 | Emergency (ER) | payer OTHER ==
[2024-09-14] MEDS ORDERED: ONDANSETRON 4 MG/2 ML VIAL ONE (02:08)
[2024-09-14] MEDS ORDERED: NA CHLORIDE 0.9% 1,000 ML ONE (02:09)
[2024-09-14 02:30] LABS: Absolute Eosinophils 0.1 K/uL (0-0.5); Absolute Lymphocytes (CBC) 0.6 K/uL (0.7-4.9); Absolute Monocytes 0.7 K/uL (0.1-1.3); Absolute Neutrophil 6.7 K/uL (1.8-8.0); Basophils % 0.2 % (0-1.3); Eosinophils % 1.5 % (0-4.4); Hematocrit 35.8 % (36.0-45.0); Hemoglobin 12.1 g/dL (12.0-15.0); Lymphocytes % 7.3 % (15.3-44.8); MCH 31.6 pg (27.0-35.0); MCHC 33.9 g/dL (32.0-36.0); MCV 93.1 fL (80-100); MPV 7.5 fL (7.6-11.3); Nucleated Red Blood Cells % 0.1 % (0-0); Platelets 223 thou/uL (152-406); RBC Red Blood Cell Count 3.84 M/uL (3.86-4.86); Red Cell Distribution Width 12.2 % (12.1-15.2)
[2024-09-14 02:45] LABS: Albumin 4.1 g/dL (3.4-5.0); Albumin/Globulin Ratio 1.1 (1.1-1.8); Bilirubin Total 0.9 mg/dL (0.2-1.0); Globulin 3.7 g/dL (2.3-3.5); Protein, Total 7.8 g/dL (6.4-8.2)
--- NOTE | 2024-09-14 06:03 | ER ---
Nurse's Notes [facility] Name: Karly Groves Age: 83 yrs Sex: Female : 1940 Arrival Date: 09/14/2024 Time: 01:40 Bed 23 Private MD: Diagnosis: Diarrhea, unspecified Presentation: 09/14 01:48 Chief complaint: Patient states: NAUSEA, DIARRHEA SINCE TONIGHT. ha1 01:48 Coronavirus screen: Client denies travel out of the [place] in the last 14 days. Ebola ha1 Screen: No symptoms or risks identified at this time. Initial Sepsis Screen: Does the patient meet any 2 criteria? No. Patient's initial sepsis screen is negative. Does the patient have a suspected source of infection? No. Patient's initial sepsis screen is negative. Risk Assessment: Do you want to hurt yourself or someone else? Patient reports no desire to harm self or others. Onset of symptoms was September 14, 2024. 01:48 Method Of Arrival: Wheelchair ha1 01:48 Acuity: BRADY 3 ha1 Triage Assessment: 01:48 General: Appears uncomfortable, Behavior is cooperative. Pain: Denies pain. Neuro: ha1 Level of Consciousness is awake, alert, obeys commands, Oriented to person, place, time, situation. Cardiovascular: Capillary refill < 3 seconds Patient's skin is warm and dry. Respiratory: Airway is patent Respiratory effort is even, unlabored, Respiratory pattern is regular, symmetrical. GI: Reports diarrhea, nausea. Derm: Skin is pink, warm \T\ dry. Historical: - Allergies: 01:48 Darvon; ha1 01:48 Diltiazem; ha1 01:48 hydrochlorothiazide; ha1 01:48 Niacin; ha1 - PMHx: 01:48 Atrial fibrillation; Hypertensive disorder; ha1 - Immunization history:: Adult Immunizations up to date. - Infectious Disease History:: Denies. - Social history:: Smoking status: Patient denies any tobacco usage or history of. Screenin:29 [facility] ED Fall Risk Assessment (Adult) History of falling in the last 3 months, jb4 including since admission No falls in past 3 months (0 pts) Confusion or Disorientation No (0 pts) Intoxicated or Sedated No (0 pts) Impaired Gait No (0 pts) Mobility Assist Device Used No (0 pt) Altered Elimination No (0 pt) Score/Fall Risk Level 0 - 2 = Low Risk Oriented to surroundings, Maintained a safe environment. Abuse screen: Denies threats or abuse. Nutritional screening: No deficits noted. Tuberculosis screening: No symptoms or risk factors identified. Assessment: 02:29 General: Appears in no apparent distress. uncomfortable, Behavior is calm, cooperative, jb4 appropriate for age. Pain: Denies pain. Neuro: Level of Consciousness is awake, alert, obeys commands, Oriented to person, place, time, situation. Cardiovascular: Patient's skin is warm and dry. Respiratory: Airway is patent Respiratory effort is even, unlabored, Respiratory pattern is regular, symmetrical. GI: Abdomen is round non-distended, Reports diarrhea, nausea. Derm: Skin is intact, Skin is pink, warm \T\ dry. Musculoskeletal: Circulation, motion, and sensation intact. Range of motion: intact in all extremities. 03:00 Reassessment: Patient and/or family updated on plan of care and expected duration. Pain ha1 level reassessed. Patient is alert, oriented x 3, equal unlabored respirations, skin warm/dry/pink. 04:00 Reassessment: Patient and/or family updated on plan of care and expected duration. Pain ha1 level reassessed. Patient is alert, oriented x 3, equal unlabored respirations, skin warm/dry/pink. Patient denies pain at this time. Patient states feeling better. Patient states symptoms have improved. 05:00 Reassessment: Patient and/or family updated on plan of care and expected duration. Pain ha1 level reassessed. Patient is alert, oriented x 3, equal unlabored respirations, skin warm/dry/pink. Patient denies pain at this time. Patient states feeling better. Patient states symptoms have improved. 06:00 Reassessment: Patient and/or family updated on plan of care and expected duration. Pain ha1 level reassessed. Patient is alert, oriented x 3, equal unlabored respirations, skin warm/dry/pink. Patient denies pain at this time. Patient states feeling better. Patient states symptoms have improved. 06:20 Reassessment: awaiting on ride home. family members on their way. ha1 Vital Signs: 01:48 BP 178 / 108; Pulse 68; Resp 17 S; Temp 97.8; Pulse Ox 100% on R/A; Weight 74.39 kg; ha1 Height 5 ft. 4 in. ; 03:00 BP 170 / 80; Pulse 71; Resp 17 S; Pulse Ox 99% on R/A; ha1 05:40 BP 165 / 74; Pulse 74; Resp 17 S; Pulse Ox 97% on R/A; ha1 01:48 Body Mass Index 28.15 (74.39 kg, 162.56 cm) ha1 ED Course: 01:40 Patient arrived in ED. jj6 01:41 Hernandez Godwin MD is Attending Physician. rt 01:48 Client placed on continuous cardiac and pulse oximetry monitoring. NIBP monitoring ha1 applied. 01:48 Arm band placed on right wrist. ha1 02:29 Patient has correct armband on for positive identification. Bed in low position. Call jb4 light in reach. Side rails up X 1. Provided Education on: plan of care\E\. 02:29 No provider procedures requiring assistance completed. Patient did not have IV access jb4 during this emergency room visit. 02:35 Triage completed. ha1 03:00 Report received from AZEB ROLON. ha1 03:20 Abdomen In Process Unspecified. EDMS Administered Medications: 02:20 Drug: Ondansetron IVP 4 mg IVP once; over 2 minutes Route: IVP; Site: right antecubital;jb4 03:00 Follow up: Response: No adverse reaction; Nausea is decreased ha1 02:20 Drug: NS 0.9% IV 1000 ml IV at 1 bolus Per protocol; to be given as a bolus over 60 jb4 minutes Route: IV; Rate: 1 bolus; Site: right antecubital; 04:20 Follow up: Response: No adverse reaction; IV Status: Completed infusion; IV Intake: ha1 1000ml Medication: 02:29 VIS not applicable for this client. jb4 Intake: 04:20 IV: 1000ml; Total: 1000ml. ha1 Outcome: 06:02 Discharge ordered by . rt 06:30 Condition: stable ha1 06:30 Discharge instructions given to patient, Instructed on discharge instructions, follow ha1 up and referral plans. Demonstrated understanding of instructions, follow-up care, 07:16 Discharged to home via wheelchair, with family, ha1 07:19 Patient left the ED. ha1 Signatures: Dispatcher [employer] EDMS Kennedy, Edward, RN RN jb4 Joana Rashid jj6 Angela Cheng, RN RN ha1 Hernandez Godwin MD MD rt
--- NOTE | 2024-09-14 06:04 | EDPHYS ---
Physician Documentation [facility] [place], [place] Name: Karly Groves Age: 83 yrs Sex: Female : 1940 Arrival Date: 09/14/2024 Time: 01:40 Bed 23 Private MD: ED Physician Hernandez Godwin HPI: 09/14 03:28 This 83 yrs old Female presents to ER via Wheelchair with complaints of Diarrhea. rt 03:28 Patient presents to the ED with reportedly profuse watery nonbloody diarrhea starting rt at about 9. Patient reports multiple episodes. Has an associated nausea, no vomiting, no abdominal pain. Denies other acute complaints at this time, symptoms are moderate severity, no other aggravating alleviating factors.. Historical: - Allergies: 01:48 Darvon; ha1 01:48 Diltiazem; ha1 01:48 hydrochlorothiazide; ha1 01:48 Niacin; ha1 - PMHx: 01:48 Atrial fibrillation; Hypertensive disorder; ha1 - Immunization history:: Adult Immunizations up to date. - Infectious Disease History:: Denies. - Social history:: Smoking status: Patient denies any tobacco usage or history of. ROS: 03:28 Constitutional: Negative for fever, chills, and weight loss, Cardiovascular: Negative rt for chest pain, palpitations, and edema, Respiratory: Negative for shortness of breath, cough, wheezing, and pleuritic chest pain, MS/Extremity: Negative for injury and deformity, Skin: Negative for injury, rash, and discoloration, Neuro: Negative for headache, weakness, numbness, tingling, and seizure, 03:28 Abdomen/GI: Positive for nausea, diarrhea, Exam: 03:28 Constitutional: This is a well developed, well nourished patient who is awake, alert, rt and in no acute distress. Head/Face: Normocephalic, atraumatic. Chest/axilla: Normal chest wall appearance and motion. Nontender with no deformity. No lesions are appreciated. Cardiovascular: Regular rate and rhythm with a normal S1 and S2. No gallops, murmurs, or rubs. Normal PMI, no JVD. No pulse deficits. Respiratory: Lungs have equal breath sounds bilaterally, clear to auscultation and percussion. No rales, rhonchi or wheezes noted. No increased work of breathing, no retractions or nasal flaring. Abdomen/GI: Soft, non-tender, with normal bowel sounds. No distension or tympany. No guarding or rebound. No evidence of tenderness throughout. Skin: Warm, dry with normal turgor. Normal color with no rashes, no lesions, and no evidence of cellulitis. MS/ Extremity: Pulses equal, no cyanosis. Neurovascular intact. Full, normal range of motion. Neuro: Awake and alert, GCS 15, oriented to person, place, time, and situation. Cranial nerves II-XII grossly intact. Motor strength 5/5 in all extremities. Sensory grossly intact. Cerebellar exam normal. Normal gait. Vital Signs: 01:48 BP 178 / 108; Pulse 68; Resp 17 S; Temp 97.8; Pulse Ox 100% on R/A; Weight 74.39 kg; ha1 Height 5 ft. 4 in. ; 03:00 BP 170 / 80; Pulse 71; Resp 17 S; Pulse Ox 99% on R/A; ha1 05:40 BP 165 / 74; Pulse 74; Resp 17 S; Pulse Ox 97% on R/A; ha1 01:48 Body Mass Index 28.15 (74.39 kg, 162.56 cm) 1 MDM: 01:53 Medical Screening Exam initiated rt 06:52 Differential diagnosis: Colitis, gastroenteritis, diverticulitis. Data reviewed: vital rt signs, nurses notes, lab test result(s), radiologic studies. Consideration of Admission/Observation Escalation of care including admission/observation considered. Discussed with patient findings of elevated creatinine. There was a significant delay in returning CT results. Patient stated that she did not wish to wait any longer, wish to be discharged. States that the symptoms have improved and will hydrate at home. Return precautions were discussed.. I considered the following discharge prescriptions or medication management in the emergency department Medications were administered in the Emergency Department. See MAR. Independent interpretation of the following test(s) in the Emergency Department CT Scan: My interpretation is No diverticulitis seen on interpretation of CT scan images. Care significantly affected by the following chronic conditions: Hypertension. Counseling: I had a detailed discussion with the patient and/or guardian regarding the historical points, exam findings, and any diagnostic results supporting the discharge/admit diagnosis, lab results, the need for outpatient follow up, to return to the emergency department if symptoms worsen or persist or if there are any questions or concerns that arise at home. Response to treatment: the patient's symptoms have markedly improved after treatment. 09/14 01:59 Order name: CBC with Diff; Complete Time: 02:45 rt 09/14 01:59 Order name: CMP; Complete Time: 02:45 rt 09/14 01:59 Order name: Lipase; Complete Time: 02:45 rt 09/14 03:20 Order name: Abdomen EDMS 09/14 01:59 Order name: IV Saline Lock; Complete Time: 02:29 rt 09/14 01:59 Order name: Labs collected and sent; Complete Time: 02:29 rt Administered Medications: 02:20 Drug: Ondansetron IVP 4 mg IVP once; over 2 minutes Route: IVP; Site: right antecubital;jb4 03:00 Follow up: Response: No adverse reaction; Nausea is decreased ha1 02:20 Drug: NS 0.9% IV 1000 ml IV at 1 bolus Per protocol; to be given as a bolus over 60 jb4 minutes Route: IV; Rate: 1 bolus; Site: right antecubital; 04:20 Follow up: Response: No adverse reaction; IV Status: Completed infusion; IV Intake: ha1 1000ml Disposition Summary: 09/14/24 06:02 Discharge Ordered Notes: Location: Home rt Problem: new rt Symptoms: have improved rt Condition: Stable rt Diagnosis - Diarrhea, unspecified rt Followup: rt - With: Private Physician - When: 2 - 3 days - Reason: Discharge Instructions: - Discharge Summary Sheet rt - Diarrhea, Adult rt Forms: - Medication Reconciliation Form rt - Antibiotic Education rt - Prescription Opioid Use rt - Patient Portal Instructions rt - Leadership Thank You Letter rt Signatures: Dispatcher [employer] Edward Self, RN RN jb4 Angela Cheng RN RN ha1 Hernandez Godwin MD MD rt Corrections: (The following items were deleted from the chart) 03:20 01:59 Abdomen Pelvis W Con+CT.[id number].[email or web address] ordered. EDHI EDMS
--- NOTE | 2024-09-14 06:44 | RAD REPORT ---
EXAM: CT Abdomen and Pelvis Without Intravenous Contrast CLINICAL HISTORY: The patient is 83 years old and is Female; Diarrhea. TECHNIQUE: Axial computed tomography images of the abdomen and pelvis without intravenous contrast. Sagittal and coronal reformatted images were created and reviewed. This CT exam was performed using one or more of the following dose reduction techniques: automated exposure control, adjustmen t of the mA and/or kV according to patient size, and/or use of iterative reconstruction technique. COMPARISON: XR Lumbar Spine 08/16/[address] Abdomen Pelvis 11/20/2020. FINDINGS: Lung bases: Unremarkable. No mass. No consolidation. ABDOMEN: Liver: Unremarkable. Gallbladder and bile ducts: Cholecystectomy with mild biliary dilatation and trace pneumobilia. N o choledocholithiasis visualized. Pancreas: Unremarkable. No ductal dilation. Spleen: Unremarkable. No splenomegaly. Adrenals: Unremarkable. No mass. Kidneys and ureters: Lobulated kidneys. No hydronephrosis. No ureter stone visualized. Stomach and bowel: Fluid throughout the lumen of the colon, suggesting diarrheal symptoms. No c olon wall thickening or pericolonic inflammation to suggest colitis. Colonic diverticulosis. No small bowel dilatation or obstruction. No gastric wall thickening. PELVIS: Appendix: No findings to suggest acute appendicitis. Bladder: Unremarkable. No stones. Reproductive: Hysterectomy. No adnexal mass visualized. ABDOMEN and PELVIS: Intraperitoneal space: Unremarkable. No free air. No significant fluid collection. Bones/joints: Old fractures in the left hemipelvis. Multilevel degenerative changes in spine. Sco liosis with concavity to the right. No acute fracture visualized. No dislocation. Soft tissues: Ventral abdominal wall hernias containing fat only. No evidence of edema/incarcerat ion. Previous lower abdominal wall hernia repair. Bilateral breast implants with calcified capsules, incompletely evaluated. Vasculature: Unremarkable. No abdominal aortic aneurysm. Lymph nodes: No pathologically enlarged lymph nodes. IMPRESSION: 1. Fluid throughout the lumen of the colon, suggesting diarrheal symptoms. No colon wall thickeni ng or pericolonic inflammation to suggest colitis. 2. Colonic diverticulosis. 3. Cholecystectomy with mild biliary dilatation and trace pneumobilia. No choledocholithiasis visua lized. 4. Additional non-emergent findings as above. Electronically signed by: Pearl Herrera MD 09/14/2024 06:13 AM [facility] [place] Due to temporary technical issues with the PACS/[employer] reporting system, reports are being jose david d by the in-house radiologist without review as a courtesy to ensure prompt reporting the interpreting radiologist is fully responsible for the content of the report. Transcribed Date/Time: 09/14/2024 6:44 AM
[2024-09-14 11:46] VITALS: TEMP 97.8
[2024-09-14 11:48] VITALS: BP 165/74; O2SAT 97
== END 2024-09-14 07:19 | disposition home or self-care (01) ==
LOC: ER 01:40
DX: R19.7 Diarrhea, unspecified (principal); I10 Essential (primary) hypertension; I48.91 Unspecified atrial fibrillation
CPT/HCPCS: 96361; 85025; 36415; 83690; 80053; 74176; 96374; 99284; J2405; J7030

== ENCOUNTER 2024-09-20 12:53 | Inpatient (IN) | payer OTHER ==
[2024-09-20 13:41] LABS: Absolute Eosinophils 0.2 K/uL (0-0.5); Absolute Monocytes 0.6 K/uL (0.1-1.3); Absolute Neutrophil 2.6 K/uL (1.8-8.0); Basophils % 0.4 % (0-1.3); Eosinophils % 4.7 % (0-4.4); Hematocrit 35.4 % (36.0-45.0); Hemoglobin 11.7 g/dL (12.0-15.0); Lymphocytes % 22.6 % (15.3-44.8); MCH 30.7 pg (27.0-35.0); MCV 93.2 fL (80-100); MPV 8.1 fL (7.6-11.3); Monocytes % 12.8 % (3.3-12.3); Neutrophils % 59.5 % (41.7-73.7); Platelets 196 thou/uL (152-406); Red Cell Distribution Width 12.4 % (12.1-15.2)
[2024-09-20 14:16] LABS: Magnesium 2.1 mg/dL (1.6-2.4); Troponin High Sensitivity 16.4 pg/mL (<58.9)
--- NOTE | 2024-09-20 14:40 | ER ---
Nurse's Notes [facility] Name: Karly Groves Age: 83 yrs Sex: Female : 1940 Arrival Date: 09/20/2024 Time: 12:53 Bed 13 Private MD: Diagnosis: Unspecified atrial fibrillation;Essential (primary) hypertension Presentation: 09/20 13:11 Chief complaint: Patient states: 'I've had A-fib tachycardia since Friday". Pt also aa5 reports SOB and generalized weakness. Coronavirus screen: At this time, the client does not indicate any symptoms associated with coronavirus-19. Ebola Screen: Patient denies travel to an Ebola-affected area in the 21 days before illness onset. Initial Sepsis Screen: Does the patient meet any 2 criteria? No. Patient's initial sepsis screen is negative. Does the patient have a suspected source of infection? No. Patient's initial sepsis screen is negative. Risk Assessment: Do you want to hurt yourself or someone else? Patient reports no desire to harm self or others. Onset of symptoms was August 2024. 13:11 Acuity: BRADY 3 aa5 13:11 Method Of Arrival: Wheelchair aa5 Historical: - Allergies: 13:12 Darvon; aa5 13:12 Diltiazem; aa5 13:12 hydrochlorothiazide; aa5 13:12 Niacin; aa5 - PMHx: 13:12 Atrial fibrillation; Hypertensive disorder; Kidney disease stage 4 (Unknown); aa5 13:12 CHF; aa5 - Immunization history:: Adult Immunizations up to date. - Infectious Disease History:: Denies. - Social history:: Smoking status: Patient denies any tobacco usage or history of. Screenin:15 [facility] ED Fall Risk Assessment (Adult) History of falling in the last 3 months, kc6 including since admission No falls in past 3 months (0 pts) Confusion or Disorientation No (0 pts) Intoxicated or Sedated No (0 pts) Impaired Gait No (0 pts) Mobility Assist Device Used No (0 pt) Altered Elimination No (0 pt) Score/Fall Risk Level 0 - 2 = Low Risk Oriented to surroundings, Maintained a safe environment. Abuse screen: Denies threats or abuse. Denies injuries from another. Nutritional screening: No deficits noted. Tuberculosis screening: No symptoms or risk factors identified. Assessment: 13:15 General: Appears in no apparent distress. comfortable, well groomed, well developed, kc6 Behavior is calm, cooperative, appropriate for age. Pain: Complains of pain in back. Neuro: Level of Consciousness is awake, alert, obeys commands, Oriented to person, place, time, situation, Appropriate for age. Cardiovascular: Reports palpitations, shortness of breath, Denies chest pain, Capillary refill < 3 seconds Rhythm is atrial fibrillation. Respiratory: Reports shortness of breath on exertion Airway is patent Trachea midline Respiratory effort is even, unlabored, Respiratory pattern is regular, symmetrical. GI: No signs and/or symptoms were reported involving the gastrointestinal system. : No signs and/or symptoms were reported regarding the genitourinary system. EENT: No signs and/or symptoms were reported regarding the EENT system. Derm: No signs and/or symptoms reported regarding the dermatologic system. Skin is intact, is healthy with good turgor, Skin is pink, warm \\T\\ dry. Musculoskeletal: No signs and/or symptoms reported regarding the musculoskeletal system. Circulation, motion, and sensation intact. Capillary refill < 3 seconds, Range of motion: intact in all extremities. 14:24 Reassessment: Patient appears in no apparent distress at this time. No changes from kc6 previously documented assessment. Patient and/or family updated on plan of care and expected duration. Pain level reassessed. Patient is alert, oriented x 3, equal unlabored respirations, skin warm/dry/pink. 15:24 Reassessment: Patient appears in no apparent distress at this time. No changes from kc6 previously documented assessment. Patient and/or family updated on plan of care and expected duration. Pain level reassessed. Patient is alert, oriented x 3, equal unlabored respirations, skin warm/dry/pink. 16:22 Reassessment: Patient appears in no apparent distress at this time. No changes from kc6 previously documented assessment. Patient and/or family updated on plan of care and expected duration. Pain level reassessed. Patient is alert, oriented x 3, equal unlabored respirations, skin warm/dry/pink. Vital Signs: 13:11 BP 124 / 73; Pulse 68; Resp 16 S; Temp 97.5(O); Pulse Ox 100% on R/A; Weight 72.57 kg aa5 (R); Height 5 ft. 4 in. (R); 14:24 BP 140 / 74; Pulse 83; Resp 18 S; Pulse Ox 99% on R/A; kc6 16:22 BP 138 / 95; Pulse 88; Resp 16 S; Pulse Ox 100% on R/A; kc6 13:11 Body Mass Index 27.46 (72.57 kg, 162.56 cm) aa5 ED Course: 12:56 Patient arrived in ED. ra3 12:58 Bethel Rosas DO is Attending Physician. ms3 13:11 Arm band placed on. aa5 13:12 Triage completed. aa5 13:15 Patient has correct armband on for positive identification. Placed in gown. Bed in low kc6 position. Call light in reach. Side rails up X 1. Adult w/ patient. night monitor on. Pulse ox on. NIBP on. Door closed. Noise minimized. Lights dimmed. Warm blanket given. Pillow given. 13:15 Inserted saline lock: 20 gauge in right forearm, using aseptic technique. Blood kc6 collected. Flushed with 10 mL NS. Patient maintains SpO2 saturation greater than 95% on room air. 13:25 Helga Oh, RN is Primary Nurse. kc6 14:17 XRAY Chest (1 view) In Process Unspecified. EDMS 14:39 Ayad Cason is Hospitalizing Provider. ms3 18:33 No provider procedures requiring assistance completed. Patient admitted, IV remains in kc6 place. Administered Medications: 16:21 Drug: amiodarone IVPB 150 mg 100 ml IVPB once over 10 mins; (mix in D5W) Volume: 100 kc6 ml; Route: IVPB; Infused Over: 10 mins; Site: right antecubital; 16:49 Follow up: Response: No adverse reaction; IV Status: Completed infusion; IV Intake: kc6 100ml 16:54 Drug: amiodarone IVPB 900 mg, D5W IV 500 ml IVPB at 1 mg/min continuous; for 6 hrs, kc6 then change to 0.5 mg/min Route: IVPB; Rate: 1 mg/min; Site: right antecubital; Medication: 18:33 VIS not applicable for this client. kc6 Intake: 16:49 IV: 100ml; Total: 100ml. kc6 Outcome: 14:40 Decision to Hospitalize by Provider. ms3 18:33 Admitted to Med/surg accompanied by tech, via wheelchair, room 423, with chart, kc6 18:33 Condition: stable 18:33 Instructed on the need for admit, 18:33 Patient left the ED. kc6 Signatures: Dispatcher [employer] EDMS Felicity Smiley, RN RN aa5 Bethel Rosas DO DO ms3 Helga Oh RN RN kc6 Georgiana Mcfadden ra3 Corrections: (The following items were deleted from the chart) 13:13 13:12 PMHx: A-fib (Unknown); aa5 aa5 13:16 13:11 BP 124 / 73; Pulse 68bpm; Resp 16bpm; Spontaneous; Pulse Ox 100% RA; Temp 97.5F aa5 Oral; aa5
--- NOTE | 2024-09-20 14:40 | EDPHYS ---
Physician Documentation [facility] Name: Karly Groves Age: 83 yrs Sex: Female : 1940 Arrival Date: 09/20/2024 Time: 12:53 Bed 13 Private MD: ED Physician Bethel Rosas HPI: 09/20 14:00 This 83 yrs old Female presents to ER via Wheelchair with complaints of irregular heart ms3 rate. 14:00 Karly Groves is an 83-year-old female presenting to the emergency department with ms3 symptoms persisting since Friday, which include marked weakness and shortness of breath. She describes a sensation of her heart working very hard and has monitored her own heart sounds with a stethoscope, noting irregularity. Her past medical history is notable for atrial fibrillation, which she typically maintains in sinus rhythm, asthma, stage four kidney disease, high blood pressure, congestive heart failure, and previous episodes of severe vomiting and diarrhea. She mentions having been considered for an ablation and pacemaker. Her current symptoms have not been alleviated with her usual medication regimen, including Toprolol. . Historical: - Allergies: 13:12 Darvon; aa5 13:12 Diltiazem; aa5 13:12 hydrochlorothiazide; aa5 13:12 Niacin; aa5 - PMHx: 13:12 Atrial fibrillation; Hypertensive disorder; Kidney disease stage 4 (Unknown); aa5 13:12 CHF; aa5 - Immunization history:: Adult Immunizations up to date. - Infectious Disease History:: Denies. - Social history:: Smoking status: Patient denies any tobacco usage or history of. ROS: 14:00 Constitutional: Negative for fever, and chills. ms3 14:00 Respiratory: Negative for shortness of breath, cough, wheezing, and pleuritic chest pain, Abdomen/GI: Negative for abdominal pain, nausea, vomiting, diarrhea, and constipation, MS/Extremity: Negative for injury and deformity, Skin: Negative for injury, rash, and discoloration, 14:00 Cardiovascular: Positive for palpitations, Exam: 14:00 Constitutional: This is a well developed, well nourished patient who is awake, alert, ms3 and in no acute distress. Chest/axilla: Normal chest wall appearance and motion. Nontender with no deformity. 14:00 Respiratory: Lungs have equal breath sounds bilaterally, clear to auscultation and percussion. No rales, rhonchi or wheezes noted. No increased work of breathing, no retractions or nasal flaring. Abdomen/GI: Soft, non-tender, with normal bowel sounds. No distension or tympany. No guarding or rebound. No evidence of tenderness throughout. Skin: Warm, dry with normal turgor. Normal color with no rashes, no lesions, and no evidence of cellulitis. 14:00 Cardiovascular: Rate: normal, Rhythm: irregularly irregular, Pulses: no pulse deficits are appreciated, Heart sounds: normal, normal S1and S2, 14:02 ECG was reviewed by the Attending Physician. ms3 Vital Signs: 13:11 BP 124 / 73; Pulse 68; Resp 16 S; Temp 97.5(O); Pulse Ox 100% on R/A; Weight 72.57 kg aa5 (R); Height 5 ft. 4 in. (R); 14:24 BP 140 / 74; Pulse 83; Resp 18 S; Pulse Ox 99% on R/A; kc6 16:22 BP 138 / 95; Pulse 88; Resp 16 S; Pulse Ox 100% on R/A; kc6 13:11 Body Mass Index 27.46 (72.57 kg, 162.56 cm) aa5 MDM: 13:23 Medical Screening Exam initiated ms3 14:00 Differential diagnosis: arrythmia, dehydration. ms3 22:02 Data reviewed: vital signs, nurses notes, lab test result(s), EKG, radiologic studies, ms3 and as a result, I will admit patient. Consideration of Admission/Observation Patient was admitted/placed on observation. 22:02 Management of patient was discussed with the following: Hospitalist: Dr Cason. ms3 Assistance Representative: Dr Lorenzana. I considered the following discharge prescriptions or medication management in the emergency department Medications were administered in the Emergency Department. See MAR. Independent interpretation of the following test(s) in the Emergency Department EKG: See my EKG interpretation above. Historians other than the Patient: Family Member: Patient's Niece. Counseling: I had a detailed discussion with the patient and/or guardian regarding the historical points, exam findings, and any diagnostic results supporting the discharge/admit diagnosis, lab results, radiology results, the need for further work-up and treatment in the hospital. ED course: Discussed Dr Lorenzana's plan for Amiodarone bolus and ggt with patient. Discussed with patient necessity of admission and she understands/ agrees with plan. All questions answered. Patient remained in stable condition while in the Emergency Department.. 09/20 13:24 Order name: Basic Metabolic Panel; Complete Time: 14:21 ms3 09/20 13:24 Order name: CBC with Diff; Complete Time: 14:21 ms3 09/20 13:24 Order name: Magnesium; Complete Time: 14:21 ms3 09/20 13:24 Order name: Troponin HS; Complete Time: 14:21 ms3 09/20 16:02 Order name: T4 Free EDMS 09/20 16:02 Order name: Thyroid Stimulating Hormone EDMS 09/20 16:02 Order name: Urinalysis w/ reflexes EDMS 09/20 16:02 Order name: Basic Metabolic Panel EDMS 09/20 16:02 Order name: Basic Metabolic Panel EDMS 09/20 16:02 Order name: Basic Metabolic Panel EDMS 09/20 16:02 Order name: Basic Metabolic Panel EDMS 09/20 16:02 Order name: Basic Metabolic Panel EDMS 09/20 16:02 Order name: Basic Metabolic Panel EDMS 09/20 16:02 Order name: CBC with Automated Diff EDMS 09/20 16:02 Order name: CBC with Automated Diff EDMS 09/20 16:02 Order name: CBC with Automated Diff EDMS 09/20 16:02 Order name: CBC with Automated Diff EDMS 09/20 16:02 Order name: CBC with Automated Diff EDMS 09/20 16:02 Order name: CBC with Automated Diff EDMS 09/20 16:02 Order name: Magnesium EDMS 09/20 16:02 Order name: Magnesium EDMS 09/20 16:02 Order name: Magnesium EDMS 09/20 16:02 Order name: Magnesium EDMS 09/20 16:02 Order name: Magnesium EDMS 09/20 16:02 Order name: Magnesium EDMS 09/20 16:02 Order name: Phosphorus EDMS 09/20 16:02 Order name: Phosphorus EDMS 09/20 16:02 Order name: Phosphorus EDMS 09/20 16:02 Order name: Phosphorus EDMS 09/20 16:02 Order name: Phosphorus EDMS 09/20 16:02 Order name: Phosphorus EDMS 09/20 16:02 Order name: Troponin High Sensitivity EDMS 09/20 16:02 Order name: Troponin High Sensitivity EDMS 09/20 16:02 Order name: Troponin High Sensitivity EDMS 09/20 13:24 Order name: XRAY Chest (1 view); Complete Time: 16:25 ms3 09/20 13:24 Order name: Cardiac monitoring; Complete Time: 13:25 ms3 09/20 13:24 Order name: EKG - Nurse/Tech; Complete Time: 13:43 ms3 09/20 13:24 Order name: IV Saline Lock; Complete Time: 13:43 ms3 09/20 13:24 Order name: Labs collected and sent; Complete Time: 13:43 ms3 09/20 13:24 Order name: O2 Per Protocol; Complete Time: 13:25 ms3 09/20 13:24 Order name: O2 Sat Monitoring; Complete Time: 13:25 ms3 EC:02 Rate is 79 beats/min. Rhythm is irregularly irregular. QRS [place] is Normal. QRS interval ms3 is normal. Clinical impression: Atrial Fibrillation. Interpreted by me. Reviewed by me. Administered Medications: 16:21 Drug: amiodarone IVPB 150 mg 100 ml IVPB once over 10 mins; (mix in D5W) Volume: 100 kc6 ml; Route: IVPB; Infused Over: 10 mins; Site: right antecubital; 16:49 Follow up: Response: No adverse reaction; IV Status: Completed infusion; IV Intake: kc6 100ml 16:54 Drug: amiodarone IVPB 900 mg, D5W IV 500 ml IVPB at 1 mg/min continuous; for 6 hrs, kc6 then change to 0.5 mg/min Route: IVPB; Rate: 1 mg/min; Site: right antecubital; Disposition Summary: 09/20/24 14:40 Hospitalization Ordered Notes: Hospitalization Status: Inpatient Admission ms3 Provider: Ayad Cason ms3 Condition: Stable ms3 Problem: new ms3 Symptoms: are unchanged ms3 Bed/Room Type: Standard ms3 Location: Telemetry/MedSurg (Inpatient)(09/20/24 15:28) ms3 Room Assignment: 423(09/20/24 17:00) bc6 Diagnosis - Unspecified atrial fibrillation ms3 - Essential (primary) hypertension ms3 Forms: - Medication Reconciliation Form ms3 - SBAR form ms3 - Leadership Thank You Letter ms3 Critical care time excluding procedures: 22:02 Critical care time: Bedside Care: 35 minutes, Consultation: 5 minutes, Family ms3 Intervention: 5 minutes. Total time: 45 minutes Signatures: Dispatcher [employer] EDFelicity Guerrero, RN RN aa5 Bethel Rosas, DO ms3 Helga Oh RN RN kc6 Shira Hayes bc6 Corrections: (The following items were deleted from the chart) 13:13 13:12 PMHx: A-fib (Unknown); aa5 aa5 13:24 13:24 Chest Single View+RAD.RAD.[email or web address] ordered. EDMS EDMS 15:28 14:40 Intensive Care Unit ms3 ms3 15:28 14:40 ms3 ms3 17:00 15:28 ms3 bc6
--- NOTE | 2024-09-20 15:42 | RAD REPORT ---
EXAMINATION: ONE VIEW CHEST XR CLINICAL INDICATION: Female, 83 years old.,PALPITATIONS TECHNIQUE: Frontal chest projection is submitted. Examination is limited by patient positioning and t echnique. COMPARISON: 06/25/2024 FINDINGS: The lungs are clear with some hyperlucency suggesting COPD. No pneumothorax or sizable effusion. The heart is normal in size. Mediastinal contours are unremarkable. Superimposition breast implants with capsular calcifications again partially limits evaluation of the lung bases. IMPRESSION: No acute intrathoracic abnormalities.
[2024-09-20] MEDS ORDERED: AMIODARONE HCL 150 MG/3 ML INJ IV ONE (16:10)
[2024-09-20] MEDS ORDERED: AMIODARONE IN DEXTROSE,ISO-OSM 0 MG/0 ML BAG IV ONE (16:10)
[2024-09-20] MEDS ORDERED: NA CHLORIDE 0.9% 100 ML ONE (16:10)
[2024-09-20] MEDS: AMIODARONE HCL 150 MG in D5W 100 ML IV STA (16:19)
--- NOTE | 2024-09-20 17:40 | P.HP ---
Certification for Inpatient Patient admitted to: Observation With expected LOS: <2 Midnights Patient will require the following post-hospital care: None Practitioner: I am a practitioner with admitting privileges, knowledge of patient current condition, hospital course, and medical plan of care. Services: Services provided to patient in accordance with Admission requirements found in Title 42 Section 412.3 of the Code of Federal Regulations Patient History Date of Service: 09/20/24 Reason for admission: symptomatic Afib History of Present Illness: Karly Groves is an 83 year old female with Pmhx HTN, CHF, Afib, Asthma, Stage 4 kidney disease who presented to the ED with irregular heart rhythm. She has a history of Atrial fibrillation and was taken off amiodarone more than a year ago, she was tolerating metoprolol well. Friday at 11 Am she started to feel short of breath, dizziness, weakness, with heart palpitations. She listened to her heart with her stethescope and heard the irregular rhythm. EKG showing Afib with controlled heart rate of 79. Laboratory evaluation significant for BUN/creatinine 22/1.8, GFR 28, NA 133, Trop 16.4. Chest xray reports "no acute intrathoracic abnormalities." Karly will be admitted to hospitalist service for further treatment of symptomatic Afib, Cardiology consulted. Allergies diltiazem Allergy (Verified 09/22/23 15:11) Rash hydrochlorothiazide Allergy (Verified 09/22/23 15:11) Rash indomethacin [From Indocin] Allergy (Verified 09/22/23 15:11) Heart issues niacin Allergy (Verified 09/22/23 15:11) Burning sensation all over propoxyphene [From Darvon] Allergy (Verified 09/22/23 15:11) Nausea/Vomiting Home Medications: Acetaminophen [Tylenol Extra Strength] 2 tab PO BID 05/07/21 Cyanocobalamin (Vitamin B-12) [Cyanocobalamin Injection] 1,000 mcg IJ MO 05/07/21 Famotidine [Pepcid*] 20 mg PO DAILY 05/07/21 Fluticasone Propion/Salmeterol [Airduo Digihaler 232-14 Mcg] 1 puff IH BID 05/07/21 Losartan Potassium [Cozaar*] 100 mg PO BEDTIME 05/07/21 Montelukast [Singulair*] 10 mg PO DAILY 05/07/21 Rivaroxaban [Xarelto*] 15 mg PO BEDTIME 05/07/21 Zolpidem Tartrate [Ambien*] 5 mg PO BEDTIME 05/07/21 Albuterol Sulfate [Albuterol Sulfate Hfa] 2 inh IH Q4HP PRN 11/08/23 Amlodipine [Norvasc] 2.5 mg PO DAILYPRN PRN 11/08/23 Furosemide 20 mg PO DAILY 11/08/23 Ipratropium [Atrovent 0.03% (21MCG)/[place] Nasal] 1 sprays NS DAILY 11/08/23 Potassium Chloride 10 meq PO DAILY 11/08/23 Vit D3 1 tab PO DAILY 11/08/23 levalbuterol HCL [Levalbuterol HCl] 1.25 mg IH TIDP PRN 11/08/23 methocarbamoL [Methocarbamol] 1,000 mg PO BID 11/08/23 predniSONE [Deltasone] 10 mg PO PRN PRN 11/08/23 - Past Medical/Surgical History Diabetic: No -: afibrillation -: CHF -: chronic kidney Dis -: Htn -: Osteoporosis -: Partial Small Bowel Obstruction -: 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 -: Chronic back pain - Family History Father -: Hypertension, Stroke Mother -: Other (see notes) Notes: COPD, tobacco user - Social History Smoking Status: Never smoker Alcohol use: Yes CD- Drugs: No Caffeine use: Yes Review of Systems Respiratory: Shortness of Breath Cardiovascular: Palpitations Neurological: Other (dizziness) Physical Examination - Physical Exam General: Alert, In no apparent distress, Oriented x3 HEENT: Atraumatic, Normocephalic, PERRLA Neck: Supple, 2+ carotid pulse no bruit Respiratory: Clear to auscultation bilaterally, Normal air movement Cardiovascular: Normal pulses, Normal S1 S2, Irregular heart rate/rhythm Capillary refill: <2 Seconds Gastrointestinal: Normal bowel sounds, Soft and benign Musculoskeletal: No clubbing Integumentary: No rashes Neurological: Normal speech, Normal tone - Studies Laboratory Data (last 24 hrs) 09/20/24 09/20/24 13:32 13:32 WBC 4.40 Hgb 11.7 L Hct 35.4 L Plt Count 196 Sodium 133 L Potassium 4.0 BUN 22 H Creatinine 1.81 H Glucose 106 Magnesium 2.1 Assessment and Plan - Plan Assessment and Plan Symptomatic Atrial fibrillation CHF -Continuous telemetry -Amiodarone drip, titrate PRN -Continue xarelto -Cardiology consulted, NPO at midnight -troponin 16.4, Serial pending -TSH/Free T 4 pending -supportive care for dizziness Stage 4 Kidney disease -BUN/Creatinine 22/1.81, GFR 28 -monitor in AM labs HTN Asthma -Continue home medications DVT ppx xarleto full code LOS 24 hour OBS Discharge Plan: Home Plan to discharge in: 24 Hours - Advance Directives Does patient have a Living Will: No Does patient have a Durable POA for Healthcare: No
[2024-09-20 19:51] VITALS: O2SAT 100
[2024-09-20] MEDS: RIVAROXABAN 15 MG TABLET PO SCH (21:52)
[2024-09-20] MEDS: MORPHINE 2 MG/ML SYR IV PRN (21:53)
[2024-09-20 23:12] VITALS: BMI 27.4
[2024-09-21] MEDS: HYDROCODONE/APAP 5/325 MG TAB PO PRN (02:39)
[2024-09-21 06:33] LABS: Absolute Eosinophils 0.2 K/uL (0-0.5); Absolute Lymphocytes (CBC) 1.5 K/uL (0.7-4.9); Absolute Monocytes 0.7 K/uL (0.1-1.3); Absolute Neutrophil 2.5 K/uL (1.8-8.0); Basophils % 0.4 % (0-1.3); Eosinophils % 4.6 % (0-4.4); Hematocrit 31.6 % (36.0-45.0); Hemoglobin 10.8 g/dL (12.0-15.0); Lymphocytes % 30.1 % (15.3-44.8); MCH 31.4 pg (27.0-35.0); MCHC 34.1 g/dL (32.0-36.0); MCV 92.1 fL (80-100); MPV 7.7 fL (7.6-11.3); Monocytes % 14.6 % (3.3-12.3); Neutrophils % 50.3 % (41.7-73.7); Nucleated Red Blood Cells % 0.1 % (0-0); Platelets 203 thou/uL (152-406); RBC Red Blood Cell Count 3.43 M/uL (3.86-4.86); Red Cell Distribution Width 12.2 % (12.1-15.2)
[2024-09-21 07:03] LABS: Magnesium 2.2 mg/dL (1.6-2.4); Phosphorus 3.6 mg/dL (2.5-4.9); Thyroid Stimulating Hormone 3.41 uIU/mL (0.358-3.740); Troponin High Sensitivity 20.7 pg/mL (<58.9)
[2024-09-21] MEDS: FLU (Fluarix Triv) TS24-25(6MOS UP)/PF 45 MCG/0.5 ML Syringe IM ONE (08:00)
[2024-09-21] MEDS: methocarbamoL 500 MG TAB PO SCH ×2 (09:07→20:52)
[2024-09-21] MEDS: ONDANSETRON 4 MG (ODT) TAB PO PRN (09:08)
[2024-09-21] MEDS: methocarbamoL 500 MG TAB ONE (09:08)
[2024-09-21] MEDS: AMIODARONE HCL 900 MG in Dextrose 5%-Water 482 ML IV SCH (09:13)
[2024-09-21] MEDS: ACETAMINOPHEN 500 MG TAB PO SCH (09:33)
--- NOTE | 2024-09-21 10:41 | P.CNS ---
Date of Consult: 09/21/24 Chief Complaint: symptomatic Afib History of Present Illness: Patient with PMH of atrial fibrillation, HTN presented with palpitations, no syncope, no chest pain, no SOB. Allergies diltiazem Allergy (Verified 09/22/23 15:11) Rash hydrochlorothiazide Allergy (Verified 09/22/23 15:11) Rash indomethacin [From Indocin] Allergy (Verified 09/22/23 15:11) Heart issues niacin Allergy (Verified 09/22/23 15:11) Burning sensation all over propoxyphene [From Darvon] Allergy (Verified 09/22/23 15:11) Nausea/Vomiting Home medications list reviewed: Yes Home Medications: Acetaminophen [Tylenol Extra Strength] 2 tab PO BID 05/07/21 Cyanocobalamin (Vitamin B-12) [Cyanocobalamin Injection] 1,000 mcg IJ MO 05/07/21 Famotidine [Pepcid*] 20 mg PO DAILY 05/07/21 Fluticasone Propion/Salmeterol [Airduo Digihaler 232-14 Mcg] 1 puff IH BID 05/07/21 Losartan Potassium [Cozaar*] 50 mg PO BEDTIME 05/07/21 Montelukast [Singulair*] 10 mg PO DAILY 05/07/21 Rivaroxaban [Xarelto*] 15 mg PO BEDTIME 05/07/21 Zolpidem Tartrate [Ambien*] 5 mg PO BEDTIME 05/07/21 Albuterol Sulfate [Albuterol Sulfate Hfa] 2 inh IH Q4HP PRN 11/08/23 Amlodipine [Norvasc] 2.5 mg PO DAILYPRN PRN 11/08/23 Furosemide 20 mg PO DAILY 11/08/23 Ipratropium [Atrovent 0.03% (21MCG)/[place] Nasal] 1 sprays NS DAILY 11/08/23 Potassium Chloride 10 meq PO DAILY 11/08/23 Vit D3 1 tab PO DAILY 11/08/23 levalbuterol HCL [Levalbuterol HCl] 1.25 mg IH TIDP PRN 11/08/23 methocarbamoL [Methocarbamol] 500 mg PO BID 11/08/23 predniSONE [Deltasone] 10 mg PO PRN PRN 11/08/23 Metoprolol Tartrate [Lopressor*] 25 mg PO BID 09/20/24 - Past Medical/Surgical History Diabetic: No -: afibrillation -: CHF -: chronic kidney Dis -: Htn -: Osteoporosis -: Partial Small Bowel Obstruction -: 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 moist/pink, EOMI, Sclerae nonicteric Neck: Supple, 2+ carotid pulse no bruit, No LAD, Without JVD or thyroid a bnormality Respiratory: Clear to auscultation bilaterally, Normal air movement Cardiovascular: Irregular heart rate/rhythm Gastrointestinal: Normal bowel sounds, No tenderness Musculoskeletal: No tenderness Integumentary: No rashes Neurological: Normal gait, Normal speech, Normal tone, Normal affect Lymphatics: No axilla or inguinal lymphadenopathy Laboratory Data (last 24 hrs) 09/20/24 09/20/24 13:32 13:32 WBC 4.40 Hgb 11.7 L Hct 35.4 L Plt Count 196 Sodium 133 L Potassium 4.0 BUN 22 H Creatinine 1.81 H Glucose 106 Magnesium 2.1 - Problems (1) Atrial fibrillation Current Visit: Yes Status: Acute Plan: patient was on amiodarone now before and was stopped due to worsening pulmonary function, also she did not tolerate sotalol in the past due to reaction to it. continue drip for now, ROBERT DCCV today switch to amiodarone 200 mg po BID after drip is over. continue Xarelto. (2) HTN (hypertension) Current Visit: Yes Status: Acute Plan: continue patient current medications and monitor.
[2024-09-21] MEDS: ACETAMINOPHEN 325 MG TABLET PO PRN (15:25)
[2024-09-21] MEDS: methocarbamoL 500 MG TAB PO ONE (15:25)
--- NOTE | 2024-09-21 16:12 | P.PN ---
Date of Service: 09/21/24 Subjective Awake, c/o chronic back pain Restarted home robaxin/tylenol ROBERT cardioveion scheduled today is now moved to tomorrow ROS 10 point ROS as noted above, otherwise negative Physical Exam General: Alert and Oriented x3, NAD HEENT: Atraumatic, Normocephalic, PERRLA Neck: Supple, 2+ carotid pulse no bruit Respiratory: Clear to auscultation bilaterally, Normal air movement, on RA Cardiovascular: Normal pulses, Normal S1 S2, Irregular heart rhythm with rate control Capillary refill: <2 Seconds Gastrointestinal: Normal bowel sounds, Soft and benign Musculoskeletal: No clubbing Integumentary: No rashes Neurological: Normal speech, Normal tone Vitals Reviewed Problem list Symptomatic Atrial fibrillation CHF Stage 4 Kidney disease Chronic Back pain HTN Asthma Assessment and Plan Symptomatic Atrial fibrillation CHF -Continuous telemetry -Amiodarone drip transitioned to Amio PO 200 mg BID -continues in Afib with rate control -Continue xarelto -Cardiology consulted, NPO at midnight -troponin 16.4, 20.7 -TSH/Free T 4 pending -supportive care for dizziness -ROBERT with cardioversion in the AM Stage 4 Kidney disease -BUN/Creatinine 24/1.58, GFR 33 -monitor in AM labs Chronic Back pain -continue home medications HTN Asthma -Continue home medications DVT ppx xarleto full code LOS 24 hour OBS Discharge Plan: Home Plan to discharge in: 24 Hours
[2024-09-21] MEDS: AMIODARONE HCL 200 MG TAB PO SCH (20:52)
[2024-09-22] MEDS: NA CHLORIDE 0.9% 500 ML ONE (06:57)
[2024-09-22] MEDS: MORPHINE 4 MG/ML SYR ONE (07:31)
[2024-09-22] MEDS ORDERED: LIDOCAINE 1% MPF 5 ML VIAL ONE (08:02)
[2024-09-22] MEDS ORDERED: propofoL 200 MG/20 ML VIAL IV ONE (08:02)
[2024-09-22 09:16] LABS: Absolute Eosinophils 0.3 K/uL (0-0.5); Absolute Lymphocytes (CBC) 1.4 K/uL (0.7-4.9); Absolute Monocytes 0.7 K/uL (0.1-1.3); Basophils % 0.5 % (0-1.3); Eosinophils % 4.9 % (0-4.4); Hematocrit 33.1 % (36.0-45.0); Hemoglobin 11.4 g/dL (12.0-15.0); Lymphocytes % 25.9 % (15.3-44.8); MCH 31.7 pg (27.0-35.0); MCHC 34.5 g/dL (32.0-36.0); MCV 92.1 fL (80-100); MPV 7.5 fL (7.6-11.3); Monocytes % 13.3 % (3.3-12.3); Neutrophils % 55.4 % (41.7-73.7); Nucleated Red Blood Cells % 0.2 % (0-0); Platelets 225 thou/uL (152-406); RBC Red Blood Cell Count 3.59 M/uL (3.86-4.86); Red Cell Distribution Width 12.5 % (12.1-15.2)
[2024-09-22 09:32] LABS: Albumin 3.4 g/dL (3.4-5.0); Albumin/Globulin Ratio 1.2 (1.1-1.8); Anion Gap 6.1 mEq/L (5.0-15.0); Bilirubin Total 0.6 mg/dL (0.2-1.0); Globulin 2.9 g/dL (2.3-3.5); Magnesium 2.2 mg/dL (1.6-2.4); Phosphorus 3.6 mg/dL (2.5-4.9); Potassium 4.1 mEq/L (3.5-5.1); Protein, Total 6.3 g/dL (6.4-8.2)
--- NOTE | 2024-09-22 12:36 | P.PN ---
Subjective Date of Service: 09/22/24 Chief Complaint: symptomatic Afib Subjective: No new changes, No C/O voiced, Tolerating diet, Ambulating, Improving Review of Systems 10-point ROS is otherwise unremarkable Physical Examination - Vital Signs Temperature: 98.6 F Blood Pressure: 142/72 Pulse: 58 Respirations: 16 Pulse Ox (%): 100 - Physical Exam General: Alert, In no apparent distress HEENT: Atraumatic, PERRLA, EOMI Neck: Supple, JVD not distended Respiratory: Clear to auscultation bilaterally, Normal air movement Cardiovascular: Regular rate/rhythm, Normal S1 S2 Gastrointestinal: Normal bowel sounds, No tenderness Musculoskeletal: No tenderness Integumentary: No rashes Neurological: Normal speech, Normal tone, Normal affect Lymphatics: No axilla or inguinal lymphadenopathy - Studies Medications List Reviewed: Yes Assessment And Plan - Current Problems (Diagnosis) (1) Atrial fibrillation Current Visit: Yes Status: Acute Plan: patient was on amiodarone now before and was stopped due to worsening pulmonary function, also she did not tolerate sotalol in the past due to reaction to it. ROBERT DCCV done today and patient is in sinus rhythm amiodarone 200 mg po BID for 1 month then continue 200 mg daily. continue Xarelto. (2) HTN (hypertension) Current Visit: Yes Status: Acute Plan: continue patient current medications and monitor.
--- NOTE | 2024-09-22 12:40 | P.DS ---
Admission Date: 09/21/24 Discharge Date: 09/22/24 Disposition: ROUTINE DISCHARGE Discharge Condition: GOOD Reason for Admission: symptomatic Afib Consultations: Cardiology-Dr. Mcadams Procedures: ROBERT cardioversion Brief History of Present Illness: Karly Groves is an 83 year old female with Pmhx HTN, CHF, Afib, Asthma, Stage 4 kidney disease who presented to the ED with irregular heart rhythm. She has a history of Atrial fibrillation and was taken off amiodarone more than a year ago, she was tolerating metoprolol well. Friday at 11 Am she started to feel short of breath, dizziness, weakness, with heart palpitations. She listened to her heart with her stethescope and heard the irregular rhythm. EKG showing Afib with controlled heart rate of 79. Laboratory evaluation significant for BUN/creatinine 22/1.8, GFR 28, NA 133, Trop 16.4. Chest xray reports "no acute intrathoracic abnormalities." Karly will be admitted to hospitalist service for further treatment of symp tomatic Afib, Cardiology consulted. Hospital Course: Problem list Symptomatic Atrial fibrillation CHF Stage 4 Kidney disease Chronic Back pain HTN Asthma Patient was admitted to the hospital for symptomatic atrial fibrillation. She underwent ROBERT cardioversion which was successful first attempt with 200 J. She was loaded and started on amiodarone during her hospitalization and will be prescribed amiodarone 200 mg by mouth twice daily for 1 month followed by milligrams once daily after that. She has done well after her cardioversion, maintained sinus rhythm Follow-up with your primary care doctor 1 to 2 weeks Please also follow-up with cardiology in 1 to 2 weeks Vital Signs/Physical Exam: Temp Pulse Resp BP Pulse Ox 98.6 F 58 16 142/72 H 100 09/22/24 12:36 09/22/24 12:36 09/22/24 12:36 09/22/24 12:36 09/22/24 12:36 General: Alert, In no apparent distress, Oriented x3 HEENT: Atraumatic, PERRLA Neck: Supple, JVD not distended Respiratory: Clear to auscultation bilaterally, Normal air movement Cardiovascular: Regular rate/rhythm, Normal S1 S2 Gastrointestinal: Normal bowel sounds, No tenderness Musculoskeletal: No tenderness Integumentary: No rashes Neurological: Normal speech, Normal affect Laboratory Data at Discharge: WBC 5.50 thou/uL (4.3-10.9) 09/22/24 09:04 Hgb 11.4 g/dL (12.0-15.0) L 09/22/24 09:04 Hct 33.1 % (36.0-45.0) L 09/22/24 09:04 Plt Count 225 thou/uL (152-406) 09/22/24 09:04 Sodium 137 mEq/L (136-145) 09/22/24 09:04 Potassium 4.1 mEq/L (3.5-5.1) 09/22/24 09:04 BUN 18 mg/dL (7-18) 09/22/24 09:04 Creatinine 1.56 mg/dL (0.55-1.02) H 09/22/24 09:04 Glucose 105 mg/dL (74-106) 09/22/24 09:04 Phosphorus 3.6 mg/dL (2.5-4.9) 09/22/24 09:04 Magnesium 2.2 mg/dL (1.6-2.4) 09/22/24 09:04 Total Bilirubin 0.6 mg/dL (0.2-1.0) 09/22/24 09:04 AST 18 U/L (15-37) 09/22/24 09:04 ALT 20 U/L (13-56) 09/22/24 09:04 Alkaline Phosphatase 61 U/L (45-117) 09/22/24 09:04 Home Medications: Acetaminophen [Tylenol Extra Strength] 2 tab PO BID 05/07/21 Cyanocobalamin (Vitamin B-12) [Cyanocobalamin Injection] 1,000 mcg IJ MO 04/19 07/10 Famotidine [Pepcid*] 20 mg PO DAILY 05/07/21 Fluticasone Propion/Salmeterol [Airduo Digihaler 232-14 Mcg] 1 puff IH BID 05/07/21 Losartan Potassium [Cozaar*] 50 mg PO BEDTIME 05/07/21 Montelukast [Singulair*] 10 mg PO DAILY 05/07/21 Rivaroxaban [Xarelto*] 15 mg PO BEDTIME 05/07/21 Zolpidem Tartrate [Ambien*] 5 mg PO BEDTIME 05/07/21 Albuterol Sulfate [Albuterol Sulfate Hfa] 2 inh IH Q4HP PRN 11/08/23 Amlodipine [Norvasc*] 2.5 mg PO DAILYPRN PRN 11/08/23 Furosemide 20 mg PO DAILY 11/08/23 Ipratropium [Atrovent 0.03% (21MCG)/[place] Nasal*] 1 sprays NS DAILY 11/08/23 Potassium Chloride 10 meq PO DAILY 11/08/23 Vit D3 1 tab PO DAILY 11/08/23 levalbuterol HCL [Levalbuterol HCl] 1.25 mg IH TIDP PRN 11/08/23 methocarbamoL [Methocarbamol] 500 mg PO BID 11/08/23 predniSONE [Prednisone*] 10 mg PO PRN PRN 11/08/23 Metoprolol Tartrate [Lopressor*] 25 mg PO BID 09/20/24 Amiodarone HCl [Cordarone*] 200 mg PO BID 30 Days #60 tab 09/22/24 New Medications: Amiodarone HCl [Cordarone*] 200 mg PO BID 30 Days #60 tab Physician Discharge Instructions: Patient was admitted to the hospital for symptomatic atrial fibrillation. She underwent ROBERT cardioversion which was successful first attempt with 200 J. She was loaded and started on amiodarone during her hospitalization and will be prescribed amiodarone 200 mg by mouth twice daily for 1 month followed by milligrams once daily after that. She has done well after her cardioversion, maintained sinus rhythm Follow-up with your primary care doctor 1 to 2 weeks Please also follow-up with cardiology in 1 to 2 weeks Diet: AHA Activity: Fall precautions Followup: Harshal Mcadams MD [ACTIVE - CAN ADMIT] - 1-2 Weeks Sun Price MD [Primary Care Provider] - 1 Week Time spent managing pt's care (in minutes): 41
--- NOTE | 2024-09-22 14:54 | TEE ---
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 NORMAL LEFT ATRIAL APPENDAGE, NO THROMBUS 2. MILD MITRAL REGURGITATION. 3. PATIENT FORAMEN OVALE. TECHNOLOGIST: DR. FONG/ MARIANNA MATOS
[2024-09-22] MEDS: methocarbamoL 500 MG TAB PO ONE (15:17)
[2024-09-22 16:14] VITALS: BP 157/69; TEMP 98.8
--- NOTE | 2024-09-23 20:30 | OP ---
Date of Procedure: 09/22/2024 Surgeon: Harshal Mcadams Procedure Performed: Transesophageal echocardiogram synchronized cardioversion. Indication For Procedure: Atrial fibrillation. Complications: None. Estimated Blood Loss: None. Sedation: Done by Anesthesia team. Description Of Procedure: After risks, benefits, and alternatives were explained to the patient, the patient agreed to proceed with procedure and signed informed consent. The patient was brought back to the OR. Time-out was performed. Sedation was administered by Anesthesia Team. Next, ROBERT probe w as inserted. Images were obtained and the ROBERT probe was out. Next, synchronized cardioversion was d one with 200 joules. The patient was converted back into sinus rhythm. The patient was moved back t o recovery in stable condition. Assessment And Plan: Atrial fibrillation, status post successful transesophageal echocardiogram card ioversion. Plan will be to: 1.Continue amiodarone 200 b.i.d. for 1 month and continue amiodarone 200 daily. 2.Continue Xarelto. KIKA/SAMI Voice ID: [id number] Report ID: [id number]
== END 2024-09-22 16:15 | disposition home or self-care (01) | DRG 309 ==
LOC: ER 12:53 → ERHOLD 15:43 → 4TH 18:21 → OBSVTOIN 09-21 15:34
PROVIDERS: ADMIT Internal Medicine; ATTEND Hospitalist
PROC: B24BZZ4 Ultrasonography of Heart with Aorta, Transesophageal (ICD-10-PCS; principal; 2024-09-21)
PROC: 5A2204Z Restoration of Cardiac Rhythm, Single (ICD-10-PCS; 2024-09-21)
DX: I48.91 Unspecified atrial fibrillation (principal); I13.0 Hypertensive heart and chronic kidney disease with heart failure and stage 1 through stage 4 chronic kidney disease, or unspecified chronic kidney disease; N18.4 Chronic kidney disease, stage 4 (severe); I50.9 Heart failure, unspecified; G89.29 Other chronic pain; M54.9 Dorsalgia, unspecified; J45.909 Unspecified asthma, uncomplicated; Z88.1 Allergy status to other antibiotic agents; Z88.8 Allergy status to other drugs, medicaments and biological substances; Z79.01 Long term (current) use of anticoagulants; Z79.52 Long term (current) use of systemic steroids; Z79.899 Other long term (current) drug therapy
CPT/HCPCS: 01922; 36415; 71045; 80048; 80053; 83735; 84100; 84439; 84443; 84484; 85025; 92960; 93005; 93312; 96365; 99285; G0378; J0282; J2003; J2270; J2704; J7040; J7060; Q0162

== ENCOUNTER 2025-07-13 07:41 | Inpatient (IN) | payer OTHER ==
[2025-07-13] MEDS ORDERED: NA CHLORIDE 0.9% 500 ML ONE (07:52)
[2025-07-13] MEDS ORDERED: MAGNESIUM SULFATE 1 gm IVPB 1 GM/100 ML BAG IV ONE (07:53)
[2025-07-13 08:15] LABS: Absolute Lymphocytes (CBC) 1.3 K/uL (0.7-4.9); Hematocrit 32.1 % (36.0-45.0); Hemoglobin 11.3 g/dL (12.0-15.0); MCH 31.6 pg (27.0-35.0); MCHC 35.1 g/dL (32.0-36.0); MCV 90.2 fL (80-100); MPV 7.5 fL (7.6-11.3); Nucleated RBC Absolute Count 0.0 (0-0); Nucleated Red Blood Cells % 0.1 % (0-0); RBC Red Blood Cell Count 3.56 M/uL (3.86-4.86); White Blood Count 4.90 thou/uL (4.3-10.9)
[2025-07-13 08:23] LABS: PT Prothrombin Time 24.9 SECONDS (10-13.0); Protime INR 2.26
[2025-07-13 08:44] LABS: AST/SGOT 17 U/L (15-37); Albumin 3.6 g/dL (3.4-5.0); Albumin/Globulin Ratio 1.1 (1.1-1.8); Alkaline Phosphatase 68 U/L (45-117); Anion Gap 13.6 mEq/L (5.0-15.0); BUN Blood Urea Nitrogen 32 mg/dL (7-18); Globulin 3.3 g/dL (2.3-3.5); Glucose Level 110 mg/dL (74-106); Magnesium 2.3 mg/dL (1.6-2.4); NT PRO-BNP 15586 pg/mL (<450); Potassium 3.6 mEq/L (3.5-5.1); Troponin High Sensitivity 18.3 pg/mL (<58.9)
[2025-07-13 08:45] LABS: ALT/SGPT < 14 U/L (13-56); Bilirubin Indirect, Calculated 0.4 mg/dL (0.2-0.8); Thyroid Stimulating Hormone 5.570 uIU/mL (0.358-3.740)
[2025-07-13] MEDS ORDERED: DIGOXIN 0.25 MG/ML AMP ONE (08:55)
[2025-07-13] MEDS ORDERED: FUROSEMIDE 20 MG/ 2ML VIAL ONE (08:56)
--- NOTE | 2025-07-13 08:58 | ER ---
Nurse's Notes [facility] Name: Karly Groves Age: 84 yrs Sex: Female : 1940 Arrival Date: 07/13/2025 Time: 07:41 Bed 15 Private MD: Diagnosis: Palpitations;Persistent atrial fibrillation-in RVR;Acute kidney failure, unspecified-ON CHRONIC Presentation: 07/13 07:48 Chief complaint: Patient states: C/O palpitations, SOB with exertion, and generalized ar8 weakness since yesterday. HX of A-fib. 07:48 Coronavirus screen: At this time, the client does not indicate any symptoms associated ar8 with coronavirus-19. Ebola Screen: No symptoms or risks identified at this time. Initial Sepsis Screen: Does the patient meet any 2 criteria? No. Patient's initial sepsis screen is negative. Does the patient have a suspected source of infection? No. Patient's initial sepsis screen is negative. Risk Assessment: Do you want to hurt yourself or someone else? Patient reports no desire to harm self or others. Onset of symptoms was July 12, 2025. 07:48 Method Of Arrival: Wheelchair ar8 07:48 Acuity: BRADY 3 ar8 Triage Assessment: 07:48 General: Appears in no apparent distress. Behavior is cooperative, anxious. ar8 07:48 Pain: Denies pain. Neuro: No deficits noted. Level of Consciousness is awake, alert, ar8 obeys commands, Oriented to person, place, time, situation, Moves all extremities. Full function Speech is normal, Facial symmetry appears normal. Cardiovascular: Reports palpitations, Patient's skin is warm and dry. Rhythm is atrial fibrillation. Respiratory: Reports shortness of breath on exertion Airway is patent Trachea midline Respiratory effort is even, unlabored, Respiratory pattern is regular, symmetrical. GI: No signs and/or symptoms were reported involving the gastrointestinal system. : No signs and/or symptoms were reported regarding the genitourinary system. Derm: No signs and/or symptoms reported regarding the dermatologic system. Musculoskeletal: Reports generalized weakness. Historical: - Allergies: 08:16 Darvon; ar8 08:16 Diltiazem; ar8 08:16 hydrochlorothiazide; ar8 08:16 Niacin; ar8 - Home Meds: 08:16 Xarelto oral [Active]; ar8 - PMHx: 08:16 Atrial fibrillation; CHF; Hypertensive disorder; KIDNEY DISEASE STAGE 4 (Unknown); ar8 Asthma; - Immunization history:: Adult Immunizations unknown. - Infectious Disease History:: Denies. - Social history:: Smoking status: Patient denies any tobacco usage or history of. - Family history:: not pertinent. Screenin:[facility] ED Fall Risk Assessment (Adult) History of falling in the last 3 months, ar8 including since admission No falls in past 3 months (0 pts) Confusion or Disorientation No (0 pts) Intoxicated or Sedated No (0 pts) Impaired Gait No (0 pts) Mobility Assist Device Used No (0 pt) Altered Elimination No (0 pt) Score/Fall Risk Level 0 - 2 = Low Risk Oriented to surroundings, Maintained a safe environment. 07:50 Abuse screen: Denies threats or abuse. Nutritional screening: No deficits noted. ar8 Tuberculosis screening: No symptoms or risk factors identified. Assessment: 08:19 Reassessment: See triage assessment. ar8 10:18 Reassessment: Per patient request, daughter (Wendi Rosas) was notified of patient's ar8 pending admission. Vital Signs: 07:48 BP 154 / 99; Pulse 101; Resp 20 S; Temp 97.9(O); Pulse Ox 100% on R/A; Weight 72.57 kg; ar8 Height 5 ft. 4 in. ; Pain 0/10; 08:45 BP 150 / 88; Pulse 86; Resp 16 S; Pulse Ox 99% on R/A; ar8 09:45 BP 141 / 64; Pulse 66; Resp 19 S; Pulse Ox 100% on R/A; ar8 07:48 Body Mass Index 27.46 (72.57 kg, 162.56 cm) ar8 07:48 Pain Scale: Adult ar8 ED Course: 07:43 Patient arrived in ED. mr 07:44 Arm band placed on Patient placed in an exam room, on a stretcher. ll1 07:46 Wally Cleveland MD is Attending Physician. elgin 07:50 Bed in low position. Call light in reach. Side rails up X2. Provided Education on: plan ar8 of care, diagnostics, and estimated wait time. Client placed on continuous cardiac and pulse oximetry monitoring. NIBP monitoring applied. Warm blanket given. 08:00 No provider procedures requiring assistance completed. Inserted saline lock: 22 gauge ar8 in right antecubital area, using aseptic technique. Blood collected. Flushed with 10 mL NS. 08:14 Joe Shannon RN is Primary Nurse. ar8 08:16 Triage completed. ar8 08:22 XRAY Chest (1 view) In Process Unspecified. EDMS 08:56 Prince Grayson MD is Hospitalizing Provider. elgin 09:27 UA Rfx Anand Cult if indicated Sent. ar8 Administered Medications: 08:46 Discontinued: ns 0.9% 500 ml 500 ml IV at 1 bolus once; to be given as a bolus over 30 elgin minutes 08:00 Drug: Magnesium Sulfate IVPB 1 grams IVPB once over 1 hrs Route: IVPB; Infused Over: 1 ar8 hrs; Site: right antecubital; 09:00 Follow up: Response: No adverse reaction; IV Status: Completed infusion; IV Intake: ar8 100ml 08:03 Drug: NS 0.9% IV 500 ml 500 ml IV at 1 bolus once; to be given as a bolus over 30 ar8 minutes Volume: 500 ml; Route: IV; Rate: 1 bolus; Site: right antecubital; 09:15 Drug: Furosemide IVP 20 mg IVP once; give over 2 minutes Route: IVP; Site: right ar8 antecubital; 10:00 Follow up: Response: No adverse reaction ar8 09:17 Drug: Digoxin IVP 0.5 mg IVP once Route: IVP; Site: right antecubital; ar8 10:00 Follow up: Response: No adverse reaction ar8 10:05 Drug: Methocarbamol PO 750 mg PO once Route: PO; ar8 10:30 Follow up: Response: No adverse reaction ar8 11:50 Drug: Rocephin IV 1 grams IV at per protocol once; Given slow IV push per pharmacy ar8 instructions Route: IV; Rate: per protocol; Site: right antecubital; 12:05 Follow up: Response: No adverse reaction; IV Status: Completed infusion; IV Intake: [id number] 12:32 Drug: morphine IVP or IV 2 mg IVP once over 4 mins Route: IVP; Infused Over: 4 mins; ar8 Site: right antecubital; 13:04 Drug: Diazepam PO 5 mg PO once Route: PO; ar8 Medication: 08:19 VIS not applicable for this client. ar8 Intake: 09:00 IV: 100ml; Total: 100ml. ar8 12:05 IV: 50ml; Total: 150ml. ar8 Outcome: 08:57 Decision to Hospitalize by Provider. elgin 21:22 Admitted to Tele accompanied by tech, via stretcher, [email or web address] 21:22 Condition: stable 21:23 Patient left the ED. kt5 Signatures: Dispatcher [employer] EDWally Jesus MD MD cha Rivera, Mary, [facility] Reg mr Ar Mahan, RN RN ll1 Joe Shannon RN RN ar8 Khalida Swift RN RN kt5
--- NOTE | 2025-07-13 08:58 | EDPHYS ---
Physician Documentation [facility] Name: Karly Groves Age: 84 yrs Sex: Female : 1940 Arrival Date: 07/13/2025 Time: 07:41 Bed 15 Private MD: ED Physician Wally Cleveland HPI: 07/13 08:48 This 84 yrs old Female presents to ER via Wheelchair with complaints of elgin Palpitations, Hx of AFIB. 08:48 The patient presents with a history of irregular heart beat, heart racing, heart elgin skipping beats. Context: The symptoms occur at rest, with light activity. Onset: The symptoms/episode began/occurred 1 day(s) ago. Duration: The patient or guardian reports a single episode, that is still ongoing. Modifying factors: The symptoms are aggravated by nothing. The symptoms are alleviated by nothing. remaining still. Associated signs and symptoms: Pertinent positives: anxiety, cough, SOB. Severity of symptoms: At their worst the symptoms were moderate in the emergency department the symptoms are unchanged. The patient has experienced similar episodes in the past, several times. Historical: - Allergies: 08:16 Darvon; ar8 08:16 Diltiazem; ar8 08:16 hydrochlorothiazide; ar8 08:16 Niacin; ar8 - Home Meds: 08:16 Xarelto oral [Active]; ar8 - PMHx: 08:16 Atrial fibrillation; CHF; Hypertensive disorder; KIDNEY DISEASE STAGE 4 (Unknown); ar8 Asthma; - Immunization history:: Adult Immunizations unknown. - Infectious Disease History:: Denies. - Social history:: Smoking status: Patient denies any tobacco usage or history of. - Family history:: not pertinent. ROS: 08:49 Constitutional: Negative for fever, chills, and weight loss, Eyes: Negative for injury, elgin pain, redness, and discharge, ENT: Negative for injury, pain, and discharge, Neck: Negative for injury, pain, and swelling, Respiratory: Negative for shortness of breath, cough, wheezing, and pleuritic chest pain, Abdomen/GI: Negative for abdominal pain, nausea, vomiting, diarrhea, and constipation, Back: Negative for injury and pain, : Negative for injury, bleeding, discharge, and swelling, MS/Extremity: Negative for injury and deformity, Skin: Negative for injury, rash, and discoloration, Neuro: Negative for headache, weakness, numbness, tingling, and seizure, Psych: Negative for depression, anxiety, suicide ideation, homicidal ideation, and hallucinations, Allergy/Immunology: Negative for hives, rash, and allergies, Endocrine: Negative for neck swelling, polydipsia, polyuria, polyphagia, and marked weight changes, Hematologic/Lymphatic: Negative for swollen nodes, abnormal bleeding, and unusual bruising, 08:49 Cardiovascular: Positive for palpitations, 08:49 MS/extremity: Positive for swelling, of the right leg and left leg, Exam: 08:49 Constitutional: This is a well developed, well nourished patient who is awake, alert, elgin and in no acute distress. Head/Face: Normocephalic, atraumatic. Eyes: Pupils equal round and reactive to light, extra-ocular motions intact. Lids and lashes normal. Conjunctiva and sclera are non-icteric and not injected. Cornea within normal limits. Periorbital areas with no swelling, redness, or edema. ENT: Nares patent. No nasal discharge, no septal abnormalities noted. Tympanic membranes are normal and external auditory canals are clear. Oropharynx with no redness, swelling, or masses, exudates, or evidence of obstruction, uvula midline. Mucous membranes moist. Neck: Trachea midline, no thyromegaly or masses palpated, and no cervical lymphadenopathy. Supple, full range of motion without nuchal rigidity, or vertebral point tenderness. No Meningismus. Chest/axilla: Normal chest wall appearance and motion. Nontender with no deformity. No lesions are appreciated. Respiratory: Lungs have equal breath sounds bilaterally, clear to auscultation and percussion. No rales, rhonchi or wheezes noted. No increased work of breathing, no retractions or nasal flaring. Abdomen/GI: Soft, non-tender, with normal bowel sounds. No distension or tympany. No guarding or rebound. No evidence of tenderness throughout. Back: No spinal tenderness. No costovertebral tenderness. Full range of motion. Female : Normal external genitalia. Skin: Warm, dry with normal turgor. Normal color with no rashes, no lesions, and no evidence of cellulitis. MS/ Extremity: Pulses equal, no cyanosis. Neurovascular intact. Full, normal range of motion., bilateral aka Neuro: Awake and alert, GCS 15, oriented to person, place, time, and situation. Cranial nerves II-XII grossly intact. Motor strength 5/5 in all extremities. Sensory grossly intact. Cerebellar exam normal. Normal gait. Psych: Awake, alert, with orientation to person, place and time. Behavior, mood, and affect are within normal limits. 08:49 Cardiovascular: Rate: tachycardic, actual rate is 101 bpm, Rhythm: irregularly irregular, Pulses: Pulses are 4+ in bilateral radial, brachial, femoral, popliteal, posterior tibial and and dorsalis pedis arteries.. Heart sounds: normal, Edema: is not appreciated, JVD: is not appreciated, 08:49 ECG was reviewed by the Attending Physician. Vital Signs: 07:48 BP 154 / 99; Pulse 101; Resp 20 S; Temp 97.9(O); Pulse Ox 100% on R/A; Weight 72.57 kg; ar8 Height 5 ft. 4 in. ; Pain 0/10; 08:45 BP 150 / 88; Pulse 86; Resp 16 S; Pulse Ox 99% on R/A; ar8 09:45 BP 141 / 64; Pulse 66; Resp 19 S; Pulse Ox 100% on R/A; ar8 07:48 Body Mass Index 27.46 (72.57 kg, 162.56 cm) ar8 07:48 Pain Scale: Adult ar8 MDM: 07:47 Medical Screening Exam initiated elgin 08:51 MYNOR Risk Score: 1 - Patient's age is greater or equal to 65, 1 - 3 or more CAD risk elgin factors, 1 - Known CAD, Total Score = 3. Differential diagnosis: arrythmia, dehydration, stress disorder. Data reviewed: vital signs, nurses notes, lab test result(s), EKG, radiologic studies, plain films. Consideration of Admission/Observation Patient was admitted/placed on observation. Escalation of care including admission/observation considered. I considered the following discharge prescriptions or medication management in the emergency department Medications were administered in the Emergency Department. See MAR. Independent interpretation of the following test(s) in the Emergency Department EKG: See my EKG interpretation above. Test considered but Not performed: Ultrasound no 2 d echo. Care significantly affected by the following chronic conditions: Hypertension, Congestive Heart Failure, Chronic Kidney Disease, asthma. 07/13 07:47 Order name: Basic Metabolic Panel; Complete Time: 09:56 [place] 07/13 07:47 Order name: CBC with Diff; Complete Time: 08:46 [place] 07/13 07:47 Order name: LFT's; Complete Time: 09:56 [place] 07/13 07:47 Order name: Magnesium; Complete Time: 09:56 [place] 07/13 07:47 Order name: NT PRO-BNP; Complete Time: 09:56 [place] 07/13 07:47 Order name: PT-INR; Complete Time: 08:46 [place] 07/13 07:47 Order name: Troponin HS; Complete Time: 09:56 [place] 07/13 07:47 Order name: TSH; Complete Time: 09:56 [facility] 07/13 07:47 Order name: UA Rfx Anand Cult if indicated; Complete Time: 09:56 [facility] 07/13 08:47 Order name: T4 Free; Complete Time: 09:56 [facility] 07/13 10:13 Order name: CBC with Automated Diff EDMS 07/13 10:13 Order name: CBC with Automated Diff EDMS 07/13 10:13 Order name: CBC with Automated Diff EDMS 07/13 10:13 Order name: CBC with Automated Diff EDMS 07/13 10:13 Order name: Comprehensive Metabolic Panel EDMS 07/13 10:13 Order name: Comprehensive Metabolic Panel EDMS 07/13 10:13 Order name: Comprehensive Metabolic Panel EDMS 07/13 10:13 Order name: Comprehensive Metabolic Panel EDMS 07/13 10:13 Order name: Troponin High Sensitivity EDMS 07/13 10:13 Order name: Troponin High Sensitivity EDMS 07/13 10:13 Order name: Troponin High Sensitivity EDMS 07/13 10:13 Order name: Troponin High Sensitivity EDMS 07/13 07:47 Order name: XRAY Chest (1 view); Complete Time: 09:56 [place] 07/13 10:13 Order name: CONS Physician Consult [facility] 07/13 07:47 Order name: Cardiac monitoring; Complete Time: 08:21 [place] 07/13 07:47 Order name: EKG - Nurse/Tech; Complete Time: 08:21 [place] 07/13 07:47 Order name: IV Saline Lock; Complete Time: 08:21 [place] 07/13 07:47 Order name: Labs collected and sent; Complete Time: 08:21 [place] 07/13 07:47 Order name: O2 Per Protocol; Complete Time: 08:21 [place] 07/13 07:47 Order name: O2 Sat Monitoring; Complete Time: : elgin EC:49 Rate is 80 beats/min. Rhythm is irregularly irregular. QRS [place] is Normal. VA interval [place] is normal. QRS interval is normal. QT interval is normal. No Q waves. T waves are Normal. No ST changes noted. Clinical impression: Atrial Fibrillation. Interpreted by me. Reviewed by me. Administered Medications: 08:46 Discontinued: ns 0.9% 500 ml 500 ml IV at 1 bolus once; to be given as a bolus over 30 elgin minutes 08:00 Drug: Magnesium Sulfate IVPB 1 grams IVPB once over 1 hrs Route: IVPB; Infused Over: 1 ar8 hrs; Site: right antecubital; 09:00 Follow up: Response: No adverse reaction; IV Status: Completed infusion; IV Intake: ar8 100ml 08:03 Drug: NS 0.9% IV 500 ml 500 ml IV at 1 bolus once; to be given as a bolus over 30 ar8 minutes Volume: 500 ml; Route: IV; Rate: 1 bolus; Site: right antecubital; 09:15 Drug: Furosemide IVP 20 mg IVP once; give over 2 minutes Route: IVP; Site: right ar8 antecubital; 10:00 Follow up: Response: No adverse reaction ar8 09:17 Drug: Digoxin IVP 0.5 mg IVP once Route: IVP; Site: right antecubital; ar8 10:00 Follow up: Response: No adverse reaction ar8 10:05 Drug: Methocarbamol PO 750 mg PO once Route: PO; ar8 10:30 Follow up: Response: No adverse reaction ar8 11:50 Drug: Rocephin IV 1 grams IV at per protocol once; Given slow IV push per pharmacy ar8 instructions Route: IV; Rate: per protocol; Site: right antecubital; 12:05 Follow up: Response: No adverse reaction; IV Status: Completed infusion; IV Intake: [id number] 12:32 Drug: morphine IVP or IV 2 mg IVP once over 4 mins Route: IVP; Infused Over: 4 mins; ar8 Site: right antecubital; 13:04 Drug: Diazepam PO 5 mg PO once Route: PO; ar8 Disposition Summary: 07/13/25 08:57 Hospitalization Ordered Notes: Hospitalization Status: Observation [place] Provider: [place] Condition: Fair el[place] Problem: an ongoing problem elgin Symptoms: have improved elgin Bed/Room Type: Standard [place] Location: Telemetry/MedSurg (observation)(07/13/25 18:19) bd Room Assignment: 405(07/13/25 18:19) bd Diagnosis - Palpitations elgin - Persistent atrial fibrillation - in RVR elgni - Acute kidney failure, unspecified - ON CHRONIC elgin Forms: - Medication Reconciliation Form elgin - SBAR form elgin - Leadership Thank You Letter elgin Critical care time excluding procedures: 08:51 Critical care time: Bedside Care: 15 minutes, Consultation: 10 minutes, Family elgin Intervention: 5 minutes. Total time: 30 minutes Signatures: Dispatcher [employer] EDCathie Collado Corey, MD MD cha Bradberry, Kelly RN RN kb3 Shira Hayes6 Joe Shannon RN RN ar8 Corrections: (The following items were deleted from the chart) 07:48 07:48 BASIC METABOLIC PANEL+C.LAB.BRZ ordered. EDMS EDMS 07:48 07:48 CBC+H.LAB.BRZ ordered. EDMS EDMS 07:48 07:48 HEPATIC FUNCTION+C.LAB.BRZ ordered. EDMS EDMS 07:48 07:48 MAGNESIUM+C.LAB.BRZ ordered. EDMS EDMS 07:48 07:48 PROBNP+C.LAB.BRZ ordered. EDMS EDMS 07:48 07:48 PROTIME (+INR)+COAG.LAB.BRZ ordered. EDMS EDMS 07:48 07:48 Troponin High Sensitivity+C.LAB.BRZ ordered. EDMS EDMS 07:48 07:48 THYROID STIMULAT HORMONE+C.LAB.BRZ ordered. EDMS EDMS 07:48 07:48 UA Rfx Anand Cult if indicated+U.LAB.BRZ ordered. EDMS EDMS 07:48 07:48 Chest Single View+RAD.RAD.BRZ ordered. EDWY EDMS 11:07 08:57 Telemetry/MedSurg (observation) [place] kb3 11:07 08:57 [place] kb3 16:36 11:07 [facility] ER HOLD kb3 bd 16:36 11:07 ERHOLD- kb3 bd 16:57 16:36 Telemetry/MedSurg (observation) bd bc6 16:57 16:36 210 bd bc6 17:16 16:57 bc6 kb3 18:19 16:57 [facility] ER [facility] bc6 bd 18:19 17:16 ERHOLD- kb3 bd
--- NOTE | 2025-07-13 09:04 | RAD REPORT ---
EXAMINATION: ONE VIEW CHEST XR CLINICAL INDICATION: COUGH TECHNIQUE: Frontal chest projection is submitted. Examination is limited by patient positioning and t echnique. COMPARISON: 09/20/2024 FINDINGS: The lungs are well inflated and clear. The heart is upper limit of normal in size. No displaced fract ures identified. IMPRESSION: No acute intrathoracic abnormalities.
[2025-07-13 09:31] LABS: Sqamous Epithelial <5 /HPF (None Seen); Urine Culture Reflex Order NOT NEEDED; Urine Microscopic Reflex YN ORDER UMIC
[2025-07-13] MEDS ORDERED: ALBUTEROL 2.5 MG/3 ML NEB SOL NEB PRN (10:08)
[2025-07-13] MEDS ORDERED: ONDANSETRON 4 MG/2 ML VIAL IV PRN (10:08)
[2025-07-13] MEDS ORDERED: AMLODIPINE 2.5 MG TAB PO PRN (10:11)
--- NOTE | 2025-07-13 10:15 | P.HP ---
Patient History Date of Service: 07/13/25 History of Present Illness: 83-year-old female with a past medical history of hypertension, CHF, A-fib, asthma, stage IV kidney disease presenting with A-fib with RVR. She states she takes metoprolol at home. All of a sudden she felt a heaviness in her chest which is very characteristic for her A-fib she states. Associated symptoms include weakness and shortness of breath. She denies any recent sick contacts. She denies dysuria, diarrhea, fevers, chills. She denies any illicit drug use. 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 She states she occasionally drinks a glass of wine. Allergies diltiazem Allergy (Verified 09/22/23 15:11) Rash hydrochlorothiazide Allergy (Verified 09/22/23 15:11) Rash indomethacin [From Indocin] Allergy (Verified 09/22/23 15:11) Heart issues niacin Allergy (Verified 09/22/23 15:11) Burning sensation all over propoxyphene [From Darvon] Allergy (Verified 09/22/23 15:11) Nausea/Vomiting Home Medications: Acetaminophen [Tylenol Extra Strength] 2 tab PO BID 05/07/21 Cyanocobalamin (Vitamin B-12) [Cyanocobalamin Injection] 1,000 mcg IJ MO 05/07/21 Famotidine [Pepcid*] 20 mg PO DAILY 05/07/21 Fluticasone Propion/Salmeterol [Airduo Digihaler 232-14 Mcg] 1 puff IH BID 05/07/21 Losartan Potassium [Cozaar*] 50 mg PO BEDTIME 05/07/21 Montelukast [Singulair*] 10 mg PO DAILY 05/07/21 Rivaroxaban [Xarelto*] 15 mg PO BEDTIME 05/07/21 Zolpidem Tartrate [Ambien*] 5 mg PO BEDTIME 05/07/21 Albuterol Sulfate [Albuterol Sulfate Hfa] 2 inh IH Q4HP PRN 11/08/23 Amlodipine [Norvasc*] 2.5 mg PO DAILYPRN PRN 11/08/23 Furosemide 20 mg PO DAILY 11/08/23 Ipratropium [Atrovent 0.03% (21MCG)/[place] Nasal*] 1 sprays NS DAILY 11/08/23 Potassium Chloride 10 meq PO DAILY 11/08/23 Vit D3 1 tab PO DAILY 11/08/23 levalbuterol HCL [Levalbuterol HCl] 1.25 mg IH TIDP PRN 11/08/23 methocarbamoL [Methocarbamol] 500 mg PO BID 11/08/23 predniSONE [Prednisone*] 10 mg PO PRN PRN 11/08/23 Metoprolol Tartrate [Lopressor*] 25 mg PO BID 09/20/24 Amiodarone HCl [Cordarone*] 200 mg PO BID 30 Days #60 tab 09/22/24 - Past Medical/Surgical History Diabetic: No -: afibrillation -: CHF -: chronic kidney Dis -: Htn -: Osteoporosis -: Partial Small Bowel Obstruction -: 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 -: Chronic back pain - Family History Father -: Hypertension, Stroke Mother -: Other (see notes) Notes: COPD, tobacco user - Social History Alcohol use: Yes CD- Drugs: No Caffeine use: Yes Review of Systems General: Weakness Eyes: Unremarkable ENT: Unremarkable Cardiovascular: Palpitations, As per HPI Gastrointestinal: Unremarkable Genitourinary: Unremarkable Physical Examination - Physical Exam General: In no apparent distress HEENT: Atraumatic, Normocephalic Neck: Supple Respiratory: Clear to auscultation bilaterally Cardiovascular: Irregular heart rate/rhythm Capillary refill: <2 Seconds Gastrointestinal: Normal bowel sounds Musculoskeletal: No clubbing Integumentary: No rashes Neurological: Normal speech - Studies Laboratory Data (last 24 hrs) 07/13/25 07/13/25 07/13/25 08:08 08:08 08:08 WBC 4.90 Hgb 11.3 L Hct 32.1 L Plt Count 237 PT 24.9 H INR 2.26 Sodium 135 L Potassium 3.6 BUN 32 H Creatinine 1.75 H Glucose 110 H Magnesium 2.3 Total Bilirubin 0.6 AST 17 ALT < 14 Alkaline Phosphatase 68 Assessment and Plan - Plan A-fib with RVR CHF Stage IV chronic kidney disease Hypertension Asthma Admit to floor Consult cardiology Continue metoprolol and amiodarone Continue Xarelto Resume losartan and Norvasc Heart healthy diet Avoid nephrotoxins Continue Singulair Continue air duo twice daily DVT prophylaxis with Xarelto - Advance Directives Does patient have a Living Will: Yes Does patient have a Durable POA for Healthcare: No
[2025-07-13] MEDS ORDERED: CEFTRIAXONE 1000 MG/VIAL ONE (10:52)
[2025-07-13] MEDS ORDERED: NA CHLORIDE 0.9% 50 ML ONE (10:53)
[2025-07-13 12:15] VITALS: BMI 27.4
[2025-07-13] MEDS ORDERED: MORPHINE 2 MG/ML SYR ONE (12:18)
[2025-07-13] MEDS ORDERED: DIAZEPAM 5 MG TABLET ONE (13:02)
[2025-07-13] MEDS: AMIODARONE HCL 200 MG TAB PO SCH (21:00)
[2025-07-13] MEDS: SALMETEROL IH SCH (21:00)
[2025-07-13] MEDS: FLUTICASONE PROPIONATE IH SCH (21:00)
[2025-07-13] MEDS: [UNRECOGNIZED DRUG - OTHER] IH SCH (21:00)
[2025-07-13] MEDS: ZOLPIDEM TARTRATE 5 MG TABLET PO SCH (22:28)
[2025-07-13] MEDS: METOPROLOL TAR 25 MG TAB PO SCH (22:28)
[2025-07-13] MEDS: ACETAMINOPHEN 500 MG TAB PO PRN (22:28)
[2025-07-13] MEDS: LOSARTAN POTASSIUM 50 MG TABLET PO SCH (22:29)
[2025-07-13] MEDS: RIVAROXABAN 15 MG TABLET PO SCH (22:29)
[2025-07-14 01:27] VITALS: O2SAT 99
[2025-07-14 04:53] LABS: Absolute Lymphocytes (CBC) 1.2 K/uL (0.7-4.9); Hematocrit 32.0 % (36.0-45.0); Hemoglobin 11.4 g/dL (12.0-15.0); MCH 32.0 pg (27.0-35.0); MCHC 35.6 g/dL (32.0-36.0); MCV 89.9 fL (80-100); MPV 7.3 fL (7.6-11.3); Nucleated RBC Absolute Count 0.0 (0-0); Nucleated Red Blood Cells % 0.0 % (0-0); RBC Red Blood Cell Count 3.56 M/uL (3.86-4.86); White Blood Count 5.00 thou/uL (4.3-10.9)
[2025-07-14 05:02] VITALS: TEMP 97.7
[2025-07-14 05:12] LABS: ALT/SGPT 17.0 U/L (13-56); AST/SGOT 14.0 U/L (15-37); Albumin 3.5 g/dL (3.4-5.0); Albumin/Globulin Ratio 1.2 (1.1-1.8); Alkaline Phosphatase 57.0 U/L (45-117); Anion Gap 11.7 mEq/L (5.0-15.0); BUN Blood Urea Nitrogen 29.0 mg/dL (7-18); Globulin 3.0 g/dL (2.3-3.5); Glucose Level 107.0 mg/dL (74-106); Potassium 3.7 mEq/L (3.5-5.1)
[2025-07-14 05:32] LABS: Sqamous Epithelial <5 /HPF (None Seen); Urine Culture Reflex Order NOT NEEDED; Urine Microscopic Reflex YN ORDER UMIC
[2025-07-14 08:16] VITALS: BP 96/50
[2025-07-14] MEDS: FAMOTIDINE 20 MG TAB PO SCH (09:00)
[2025-07-14] MEDS: MONTELUKAST 10 MG TAB PO SCH (09:00)
--- NOTE | 2025-07-14 11:47 | P.CNS ---
Date of Consult: 07/14/25 Chief Complaint: palpitation History of Present Illness: Patient with PMH of atrial fibrillation with recent ROBERT DCCV and history of ablation in the past, presented with worsening palpitations, dound to be in RVR, denies chest pain, no syncope, nbo breathing problems. Allergies diltiazem Allergy (Verified 09/22/23 15:11) Rash hydrochlorothiazide Allergy (Verified 09/22/23 15:11) Rash indomethacin [From Indocin] Allergy (Verified 09/22/23 15:11) Heart issues niacin Allergy (Verified 09/22/23 15:11) Burning sensation all over propoxyphene [From Darvon] Allergy (Verified 09/22/23 15:11) Nausea/Vomiting Home medications list reviewed: Yes Home Medications: Acetaminophen [Tylenol Extra Strength] 2 tab PO BID PRN 05/07/21 Famotidine [Pepcid*] 20 mg PO DAILY 05/07/21 Montelukast [Singulair*] 10 mg PO DAILY 05/07/21 Rivaroxaban [Xarelto*] 15 mg PO BEDTIME 05/07/21 Zolpidem Tartrate [Ambien*] 5 mg PO BEDTIME 05/07/21 Albuterol Sulfate [Albuterol Sulfate Hfa] 2 inh IH BID 11/08/23 Furosemide 20 mg PO DAILY 11/08/23 Vit D3 1 tab PO DAILY 11/08/23 levalbuterol HCL [Levalbuterol HCl] 1.25 mg IH TIDP PRN 11/08/23 methocarbamoL [Methocarbamol] 1,000 mg PO BID 11/08/23 predniSONE [Prednisone*] 10 mg PO PRN PRN 11/08/23 Cholecalciferol (Vitamin D3) [D3-5000] 125 mcg PO DAILY 07/13/25 Fluticasone Propion/Salmeterol [Fluticasone-Salmeterol 232-14] 1 puff IN BID 07/13/25 Digoxin 125 mcg PO DAILY 30 Days #30 tab 07/14/25 Metoprolol Tartrate [Lopressor*] 25 mg PO BID 30 Days #60 tab 07/14/25 - Past Medical/Surgical History Diabetic: No -: afibrillation -: CHF -: chronic kidney Dis -: Htn -: Osteoporosis -: Partial Small Bowel Obstruction -: 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 moist/pink, EOMI, Sclerae nonicteric Neck: Supple, 2+ carotid pulse no bruit, No LAD, Without JVD or thyroid abnormality Respiratory: Clear to auscultation bilaterally, Normal air movement Cardiovascular: Normal S1 S2, Irregular heart rate/rhythm Gastrointestinal: Normal bowel sounds, No tenderness Musculoskeletal: No tenderness Integumentary: No rashes Neurological: Normal gait, Normal speech, Normal tone, Normal affect Lymphatics: No axilla or inguinal lymphadenopathy - Problems (1) Atrial fibrillation Current Visit: No Status: Acute Plan: Patient is in RVR, rate controlled, she can not take Amidoarone due to history of lung problems she can not take Sotalol due to leg swellings will start her on Digoxin 125 mcg daily continue lopressor 25 mg po BID continue Xarelto 15 mg daily Outpatient follow up with cardiology to refer to EP for evaluation for ablation. (2) HTN (hypertension) Current Visit: No Status: Acute Plan: BP is soft, hold losartan and Norvasc on discharge.
--- NOTE | 2025-07-14 13:29 | P.DS ---
Admission Date: 07/13/25 Discharge Date: 07/14/25 Disposition: ROUTINE DISCHARGE Discharge Condition: GOOD Reason for Admission: palpitation Brief History of Present Illness: 83-year-old female with a past medical history of hypertension, CHF, A-fib, asthma, stage IV kidney disease presenting with A-fib with RVR. She states she takes metoprolol at home. All of a sudden she felt a heaviness in her chest which is very characteristic for her A-fib she states. Associated symptoms include weakness and shortness of breath. She denies any recent sick contacts. She denies dysuria, diarrhea, fevers, chills. She denies any illicit drug use. 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 She states she occasionally drinks a glass of wine. Upon admission cardiology was consulted. She was placed on digoxin and her rate was controlled. She will be discharged home to follow-up with cardiology for possible ablation in the future. She will start digoxin 125 mcg daily. She will stop losartan upon discharge. Remainder of her medical problems are chronic and stable and she is optimized for discharge Hospital Course: Physical Examination - Physical Exam General: In no apparent distress HEENT: Atraumatic, Normocephalic Neck: Supple Respiratory: Clear to auscultation bilaterally Cardiovascular: Irregular heart rate/rhythm Capillary refill: <2 Seconds Gastrointestinal: Normal bowel sounds Musculoskeletal: No clubbing Integumentary: No rashes Neurological: Normal speech - Studies Laboratory Data (last 24 hrs) 07/13/25 07/13/25 07/13/25 08:08 08:08 08:08 WBC 4.90 Hgb 11.3 L Hct 32.1 L Plt Count 237 PT 24.9 H INR 2.26 Sodium 135 L Potassium 3.6 BUN 32 H Creatinine 1.75 H Glucose 110 H Magnesium 2.3 Total Bilirubin 0.6 AST 17 ALT < 14 Alkaline Phosphatase 68 Assessment and Plan - Plan A-fib with RVR CHF Stage IV chronic kidney disease Hypertension Asthma 07/14 - A-fib with RVR now rate controlled - Home with digoxin daily and continue Xarelto - Stop amiodarone - Continue Lopressor - Stop losartan - Follow-up with cardiology for ablation - Discussed with Dr. Mcadams Admit to floor Consult cardiology Continue metoprolol and amiodarone Continue Xarelto Resume losartan and Norvasc Heart healthy diet Avoid nephrotoxins Continue Singulair Continue air duo twice daily DVT prophylaxis with Xarelto - Advance Directives Does patient have a Living Will: Yes Does patient have a Durable POA for Healthcare: No Vital Signs/Physical Exam: Temp Pulse Resp BP Pulse Ox 97.7 F 75 16 96/50 L 99 07/14/25 08:00 07/14/25 08:00 07/14/25 08:00 07/14/25 08:00 07/14/25 08:00 Laboratory Data at Discharge: WBC 5.00 thou/uL (4.3-10.9) 07/14/25 04:40 Hgb 11.4 g/dL (12.0-15.0) L 07/14/25 04:40 Hct 32.0 % (36.0-45.0) L 07/14/25 04:40 Plt Count 225 thou/uL (152-406) 07/14/25 04:40 PT 24.9 SECONDS (10-13.0) H 07/13/25 08:08 INR 2.26 07/13/25 08:08 Sodium 138 mEq/L (136-145) 07/14/25 04:40 Potassium 3.7 mEq/L (3.5-5.1) 07/14/25 04:40 BUN 29 mg/dL (7-18) H 07/14/25 04:40 Creatinine 1.57 mg/dL (0.55-1.02) H 07/14/25 04:40 Glucose 107 mg/dL (74-106) H 07/14/25 04:40 Magnesium 2.3 mg/dL (1.6-2.4) 07/13/25 08:08 Total Bilirubin 0.6 mg/dL (0.2-1.0) 07/14/25 04:40 AST 14 U/L (15-37) L 07/14/25 04:40 ALT 17 U/L (13-56) 07/14/25 04:40 Alkaline Phosphatase 57 U/L (45-117) 07/14/25 04:40 Home Medications: Acetaminophen [Tylenol Extra Strength] 2 tab PO BID PRN 05/07/21 Famotidine [Pepcid*] 20 mg PO DAILY 05/07/21 Montelukast [Singulair*] 10 mg PO DAILY 05/07/21 Rivaroxaban [Xarelto*] 15 mg PO BEDTIME 05/07/21 Zolpidem Tartrate [Ambien*] 5 mg PO BEDTIME 05/07/21 Albuterol Sulfate [Albuterol Sulfate Hfa] 2 inh IH BID 11/08/23 Furosemide 20 mg PO DAILY 11/08/23 Vit D3 1 tab PO DAILY 11/08/23 levalbuterol HCL [Levalbuterol HCl] 1.25 mg IH TIDP PRN 11/08/23 methocarbamoL [Methocarbamol] 1,000 mg PO BID 11/08/23 predniSONE [Prednisone*] 10 mg PO PRN PRN 11/08/23 Cholecalciferol (Vitamin D3) [D3-5000] 125 mcg PO DAILY 07/13/25 Fluticasone Propion/Salmeterol [Fluticasone-Salmeterol 232-14] 1 puff IN BID 07/13/25 Digoxin 125 mcg PO DAILY 30 Days #30 tab 07/14/25 Metoprolol Tartrate [Lopressor*] 25 mg PO BID 30 Days #60 tab 07/14/25 New Medications: Digoxin 125 mcg PO DAILY 30 Days #30 tab Metoprolol Tartrate [Lopressor*] 25 mg PO BID 30 Days #60 tab Followup: NONE,NONE [Primary Care Provider] - 1-2 Weeks
== END 2025-07-14 11:58 | disposition home or self-care (01) | DRG 309 ==
LOC: ER 07:41 → ERHOLD 10:08 → 4TH 19:31
PROVIDERS: ADMIT Family Medicine; ATTEND Family Medicine
DX: I48.19 Other persistent atrial fibrillation (principal); I13.0 Hypertensive heart and chronic kidney disease with heart failure and stage 1 through stage 4 chronic kidney disease, or unspecified chronic kidney disease; N17.9 Acute kidney failure, unspecified; N18.4 Chronic kidney disease, stage 4 (severe); I50.9 Heart failure, unspecified; J45.909 Unspecified asthma, uncomplicated; Z88.8 Allergy status to other drugs, medicaments and biological substances; Z79.01 Long term (current) use of anticoagulants; Z79.52 Long term (current) use of systemic steroids; Z79.899 Other long term (current) drug therapy
CPT/HCPCS: 36415; 71045; 80048; 80053; 80076; 81001; 82947; 83735; 83880; 84439; 84443; 84484; 85025; 85610; 93005; 96365; 96375; 99285; J0696; J1160; J1938; J2270; J3475; J7040

== ENCOUNTER 2025-08-07 18:02 | Emergency (ER) | payer OTHER ==
[2025-08-07 18:51] LABS: Absolute Lymphocytes (CBC) 1.1 K/uL (0.7-4.9); Hematocrit 37.2 % (36.0-45.0); Hemoglobin 12.5 g/dL (12.0-15.0); MCH 30.4 pg (27.0-35.0); MCHC 33.7 g/dL (32.0-36.0); MCV 90.2 fL (80-100); MPV 8.3 fL (7.6-11.3); Nucleated RBC Absolute Count 0.0 (0-0); Nucleated Red Blood Cells % 0.0 % (0-0); RBC Red Blood Cell Count 4.12 M/uL (3.86-4.86); White Blood Count 6.20 thou/uL (4.3-10.9)
--- NOTE | 2025-08-07 18:53 | RAD REPORT ---
EXAMINATION: ONE VIEW CHEST XR CLINICAL INDICATION: Female, 84 years old.,CHEST PAIN TECHNIQUE: Frontal chest projection is submitted. Examination is limited by patient positioning and t echnique. COMPARISON: 07/13/2025 FINDINGS: The lungs are well inflated and clear. No pneumothorax or sizable effusion. The heart is normal in s ize. Mediastinal contours are unremarkable. IMPRESSION: No acute intrathoracic abnormalities.
[2025-08-07 18:58] LABS: PT Prothrombin Time 36.1 SECONDS (10-13.0); Protime INR 3.31
[2025-08-07 19:19] LABS: ALT/SGPT 20.0 U/L (13-56); AST/SGOT 16.0 U/L (15-37); Albumin 3.8 g/dL (3.4-5.0); Albumin/Globulin Ratio 1.2 (1.1-1.8); Alkaline Phosphatase 66.0 U/L (45-117); Anion Gap 11.7 mEq/L (5.0-15.0); BUN Blood Urea Nitrogen 20.0 mg/dL (7-18); Bilirubin Indirect, Calculated 0.4 mg/dL (0.2-0.8); Globulin 3.2 g/dL (2.3-3.5); Glucose Level 115.0 mg/dL (74-106); Magnesium 2.5 mg/dL (1.6-2.4); NT PRO-BNP 11366.0 pg/mL (<450); Potassium 3.7 mEq/L (3.5-5.1); Thyroid Stimulating Hormone 3.27 uIU/mL (0.358-3.740); Troponin High Sensitivity 44.4 pg/mL (<58.9)
[2025-08-07] MEDS ORDERED: ACETAMINOPHEN 500 MG TAB ONE (19:50)
--- NOTE | 2025-08-07 20:21 | RAD REPORT ---
EXAMINATION: US Extrem Venous W Compress Melvin CLINICAL INDICATION: [facility] MA[facility] SWELLING Bed Name: 5 N TECHNIQUE: Complete bilateral duplex sonography of the BILATERAL lower extremity veins was performed. The examination included compression for vein patency, color Doppler imaging and flow augmentation in response to distal compression of the distal external iliac, common femoral, femoral, popliteal, t ibial, and great and small saphenous veins. COMPARISON: No prior exam. FINDINGS: Duplex sonography testing of the veins of the BILATERAL lower extremity was performed. Color flow neo ging shows all veins to be compressible with [id number] color filling. Pulsatile and phasic flow is present within all lower extremity deep and superficial veins examined. IMPRESSION: There is no deep vein or superficial vein thrombosis.
--- NOTE | 2025-08-07 23:43 | ER ---
Nurse's Notes [facility] Name: Karly Groves Age: 84 yrs Sex: Female : 1940 Arrival Date: 08/07/2025 Time: 18:02 Bed 5 Private MD: Diagnosis: Paroxysmal atrial fibrillation Presentation: 08/07 18:11 Chief complaint: Patient states: c/o palpitations with SOB that started last night me1 about 8 pm. Also reports weakness and dizziness. Hx: Afib. Coronavirus screen: Vaccine status: At this time, the client does not indicate any symptoms associated with coronavirus-19. Ebola Screen: No symptoms or risks identified at this time. Initial Sepsis Screen: Does the patient meet any 2 criteria? HR > 90 bpm. Does the patient have a suspected source of infection? No. Patient's initial sepsis screen is negative. Risk Assessment: Do you want to hurt yourself or someone else? Patient reports no desire to harm self or others. Onset of symptoms was August 06, 2025 at 20:00. 18:11 Method Of Arrival: Ambulatory [facility] 18:11 Acuity: BRADY 3 me1 Triage Assessment: 22:22 General: Appears in no apparent distress. Respiratory: Onset: The symptoms/episode kd3 began/occurred gradually, the patient has mild shortness of breath. Historical: - Allergies: 18:13 Darvon; me1 18:13 Diltiazem; me1 18:13 hydrochlorothiazide; me1 18:13 Niacin; me1 - PMHx: 18:13 Asthma; Atrial fibrillation; CHF; Hypertensive disorder; KIDNEY DISEASE STAGE 4 me1 (Unknown); - PSHx: 18:13 Total abdominal hysterectomy; breast implants bilateral; Operative procedure on knee; me1 back surgery; - Immunization history:: Adult Immunizations up to date. - Infectious Disease History:: Denies. - Social history:: Smoking status: Patient denies any tobacco usage or history of. Screenin:30 [facility] ED Fall Risk Assessment (Adult) History of falling in the last 3 months, jb4 including since admission No falls in past 3 months (0 pts) Confusion or Disorientation No (0 pts) Intoxicated or Sedated No (0 pts) Impaired Gait No (0 pts) Mobility Assist Device Used No (0 pt) Altered Elimination No (0 pt) Score/Fall Risk Level 0 - 2 = Low Risk Oriented to surroundings, Maintained a safe environment. Abuse screen: Denies threats or abuse. Nutritional screening: No deficits noted. Tuberculosis screening: No symptoms or risk factors identified. Assessment: 18:30 General: Appears in no apparent distress. uncomfortable, Behavior is calm, cooperative, jb4 appropriate for age. Pain: Complains of pain in chest Pain does not radiate. Pain currently is 0 out of 10 on a pain scale. Neuro: Level of Consciousness is awake, alert, obeys commands, Oriented to person, place, time, situation. Cardiovascular: Patient's skin is warm and dry. Rhythm is atrial fibrillation. Respiratory: Reports shortness of breath on exertion Airway is patent Respiratory effort is even, unlabored, Respiratory pattern is regular, symmetrical. Derm: Skin is intact, Skin is pink, warm \T\ dry. Musculoskeletal: Circulation, motion, and sensation intact. Range of motion: intact in all extremities. 19:00 Reassessment: Patient appears in no apparent distress at this time. Patient and/or ss12 family updated on plan of care and expected duration. Pain level reassessed. Patient is alert, oriented x 3, equal unlabored respirations, skin warm/dry/pink. 20:00 Reassessment: Patient appears in no apparent distress at this time. Patient and/or ss12 family updated on plan of care and expected duration. Pain level reassessed. Patient is alert, oriented x 3, equal unlabored respirations, skin warm/dry/pink. 23:05 Respiratory: Breath sounds are clear bilaterally. kd3 23:05 General: Appears in no apparent distress. uncomfortable, Behavior is calm, cooperative. kd3 Neuro: Level of Consciousness is awake, alert, obeys commands, Oriented to person, place, time, situation. Cardiovascular: Capillary refill < 3 seconds Patient's skin is warm and dry. Respiratory: Airway is patent Respiratory effort is even, unlabored, Respiratory pattern is regular, symmetrical. Vital Signs: 18:11 BP 167 / 98; Pulse 106; Resp 20; Temp 97.4; Pulse Ox 100% ; Weight 70.31 kg; Height 5 me1 ft. 4 in. ; Pain 0/10; 19:30 BP 174 / 81; Pulse 56; Resp 16; Pulse Ox 100% on R/A; ss12 20:00 BP 159 / 71; Pulse 79; Resp 16; Pulse Ox 100% ; ss12 22:22 BP 153 / 59; Pulse 75; Resp 19; Pulse Ox 95% on R/A; kd3 23:04 BP 144 / 56; Pulse 75; Resp 18; Pulse Ox 98% on R/A; kd3 18:11 Body Mass Index 26.61 (70.31 kg, 162.56 cm) me1 18:11 Pain Scale: Adult wy1 ED Course: 18:06 Patient arrived in ED. im 18:13 Triage completed. me1 18:13 Arm band placed on Patient placed in an exam room. me1 18:18 Nancy Patel PA-C is PHCP. sb4 18:18 Wally Cleveland MD is Attending Physician. sb4 18:19 Edward Aquino, RN is Primary Nurse. jb4 18:25 EKG done, by ED staff, reviewed by Nancy Patel PA-C. em1 18:30 Patient has correct armband on for positive identification. Bed in low position. Call jb4 light in reach. Side rails up X 1. Provided Education on: plan of care. 18:30 Inserted saline lock: 20 gauge in right antecubital area, using aseptic technique. jb4 18:49 XRAY Chest (1 view) In Process Unspecified. EDMS 18:54 EKG done, by ED staff, reviewed by Nancy Patel PA-C. em1 19:52 Extrem Venous W Compression Melvin US In Process Unspecified. EDMS 22:22 No provider procedures requiring assistance completed. kd3 23:05 Troponin High Sensitivity Sent. kd3 08/08 00:05 IV discontinued, intact, bleeding controlled, No redness/swelling at site. Pressure ss12 dressing applied. Administered Medications: 08/07 19:56 Drug: Methocarbamol PO 1000 mg PO once Route: PO; kd3 20:30 Follow up: Response: No adverse reaction ss12 19:56 Drug: Acetaminophen PO 1000 mg PO once Route: PO; kd3 20:30 Follow up: Response: No adverse reaction ss12 Medication: 22:23 VIS not applicable for this client. kd3 Outcome: 23:42 Discharge ordered by . sb4 23:52 Discharged to home ambulatory, ss12 23:52 Condition: stable 23:52 Discharge instructions given to patient, family, Instructed on discharge instructions, follow up and referral plans. Demonstrated understanding of instructions, follow-up care, 08/08 00:05 Patient left the ED. ss12 Signatures: Dispatcher [employer] Sherif Breaux em1 Edward Aquino, RN RN jb4 Domi Boss, RN RN kd3 Nancy Patel, PATere PATere sb4 Zoraida Serrano Michelle RN RN me1 Yarely Pritchett RN RN ss12
--- NOTE | 2025-08-07 23:43 | EDPHYS ---
Physician Documentation [facility] Name: Karly Groves Age: 84 yrs Sex: Female : 1940 Arrival Date: 08/07/2025 Time: 18:02 Bed 5 Private MD: ED Physician Wally Cleveland HPI: 08/07 23:55 This 84 yrs old Female presents to ER via Ambulatory with complaints of AFIB, sb4 Palpitations, Shortness Of Breath. 08/08 01:14 Patient believes that she is in A-fib because she is experiencing palpitations sb4 dizziness and dyspnea on exertion. Was recently admitted for A-fib, had her medications adjusted. Is currently taking digoxin daily, is supposed to follow-up with EP about getting an ablation. Reports compliance with her medications. Denies any chest pain. Historical: - Allergies: 08/07 18:13 Darvon; me1 18:13 Diltiazem; me1 18:13 hydrochlorothiazide; me1 18:13 Niacin; me1 - PMHx: 18:13 Asthma; Atrial fibrillation; CHF; Hypertensive disorder; KIDNEY DISEASE STAGE 4 me1 (Unknown); - PSHx: 18:13 Total abdominal hysterectomy; breast implants bilateral; Operative procedure on knee; me1 back surgery; - Immunization history:: Adult Immunizations up to date. - Infectious Disease History:: Denies. - Social history:: Smoking status: Patient denies any tobacco usage or history of. ROS: 08/08 01:14 Constitutional: Negative for fever, chills, and weight loss, sb4 Cardiovascular: Positive for palpitations, Respiratory: Positive for dyspnea on exertion, Neuro: Positive for dizziness, All other systems are negative, Exam: 01:14 Head/Face: Normocephalic, atraumatic. Eyes: Extra-ocular motions intact. Periorbital sb4 areas with no swelling, redness, or edema. ENT: Mucous membranes moist. Respiratory: No increased work of breathing, no retractions or nasal flaring. Abdomen/GI: Soft, non-tender, no distension. Skin: Warm, dry with normal turgor. Normal color with no rashes, no lesions, and no evidence of cellulitis. 01:14 Constitutional: The patient appears in no acute distress, alert, awake, 01:14 Cardiovascular: Rate: tachycardic, Rhythm: regular, 01:16 Musculoskeletal/extremity: Mild swelling noted to the left lower extremity. No redness sb4 or warmth. Vital Signs: 08/07 18:11 BP 167 / 98; Pulse 106; Resp 20; Temp 97.4; Pulse Ox 100% ; Weight 70.31 kg; Height 5 me1 ft. 4 in. ; Pain 0/10; 19:30 BP 174 / 81; Pulse 56; Resp 16; Pulse Ox 100% on R/A; ss12 20:00 BP 159 / 71; Pulse 79; Resp 16; Pulse Ox 100% ; ss12 22:22 BP 153 / 59; Pulse 75; Resp 19; Pulse Ox 95% on R/A; kd3 23:04 BP 144 / 56; Pulse 75; Resp 18; Pulse Ox 98% on R/A; kd3 18:11 Body Mass Index 26.61 (70.31 kg, 162.56 cm) me1 18:11 Pain Scale: Adult me1 MDM: 18:18 Medical Screening Exam initiated sb4 19:10 ED course: patient consents to sharing information with daughter Karen. sb4 08/08 01:16 Differential diagnosis: afib, electrolyte abnormality, medication noncompliance, ACS, sb4 DVT. Data reviewed: vital signs, nurses notes, lab test result(s), EKG, radiologic studies, and as a result, I will discharge patient. 01:17 Consideration of Admission/Observation Escalation of care including sb4 admission/observation considered. Counseling: I had a detailed discussion with the patient and/or guardian regarding the historical points, exam findings, and any diagnostic results supporting the discharge/admit diagnosis, the presence of at least one elevated blood pressure reading (>120/80) during this emergency department visit, lab results, radiology results, the need for outpatient follow up, Electrophysiology, to return to the emergency department if symptoms worsen or persist or if there are any questions or concerns that arise at home. Special discussion: Based on the patient's history, exam, and Dx evaluation, there is no indication for emergent intervention or inpatient Tx. It is understood by the patient/guardian that if the Sx's persist or worsen they need to return immediately for re-evaluation. ED course: Patient states that she is feeling better, would like to go home and sleep in her own bed. States she will follow-up with EP on an outpatient basis. 08/07 18:31 Order name: Basic Metabolic Panel; Complete Time: 19:21 sb4 08/07 18:31 Order name: CBC with Diff; Complete Time: 19:03 sb4 08/07 18:31 Order name: LFT's; Complete Time: 19:21 sb4 08/07 18:31 Order name: Magnesium; Complete Time: 19:21 sb4 08/07 18:31 Order name: NT PRO-BNP; Complete Time: 19:21 sb4 08/07 18:31 Order name: PT-INR; Complete Time: 19:03 sb4 08/07 18:31 Order name: Troponin HS; Complete Time: 19:21 sb4 08/07 18:31 Order name: TSH; Complete Time: 19:21 sb4 08/07 18:35 Order name: Digoxin; Complete Time: 19:33 sb4 08/07 20:23 Order name: Troponin High Sensitivity; Complete Time: 23:40 sb4 08/07 18:31 Order name: XRAY Chest (1 view); Complete Time: 19:03 sb4 08/07 18:35 Order name: Extrem Venous W Compression Melvin US; Complete Time: 20:22 sb4 08/07 18:45 Order name: EKG; Complete Time: 18:46 sb4 08/07 18:31 Order name: Cardiac monitoring; Complete Time: 18:32 sb4 08/07 18:31 Order name: EKG - Nurse/Tech; Complete Time: 18:32 sb4 08/07 18:31 Order name: IV Saline Lock; Complete Time: 18:54 sb4 08/07 18:31 Order name: Labs collected and sent; Complete Time: 18:54 sb4 08/07 18:31 Order name: O2 Per Protocol; Complete Time: 18:32 sb4 08/07 18:31 Order name: O2 Sat Monitoring; Complete Time: 18:32 sb4 08/07 20:23 Order name: Misc. Order: ambulate; Complete Time: 22:14 sb4 EC/19 18:45 Rate is 105 beats/min. Rhythm is regular, Sinus tachycardia. [place] interval is normal at sb4 164 msec. QRS interval is normal at 90 msec. QT interval is normal at 338 msec. No Q waves. T waves are Normal. Clinical impression: Sinus tachycardia. Interpreted by me. Reviewed by me. 19:00 Rate is 77 beats/min. Rhythm is irregularly irregular, A fib with Occasional PVCs. QRS sb4 interval is normal at 90 msec. QT interval is normal at 420 msec. Clinical impression: Atrial Fibrillation. Interpreted by me. Reviewed by me. Administered Medications: 19:56 Drug: Methocarbamol PO 1000 mg PO once Route: PO; kd3 20:30 Follow up: Response: No adverse reaction ss12 19:56 Drug: Acetaminophen PO 1000 mg PO once Route: PO; kd3 20:30 Follow up: Response: No adverse reaction ss12 Disposition Summary: 08/07/25 23:42 Discharge Ordered Notes: Location: Home sb4 Problem: new sb4 Symptoms: have improved sb4 Condition: Stable sb4 Diagnosis - Paroxysmal atrial fibrillation sb4 Followup: sb4 - With: Emergency Department - When: As needed - Reason: Trouble breathing, Worsening of condition Discharge Instructions: - Discharge Summary Sheet sb4 - Atrial Fibrillation sb4 Forms: - Patient Portal Instructions sb4 - Leadership Thank You Letter sb4 Signatures: Dispatcher [employer] Domi Marquez RN RN kd3 Nancy Patel PA-C PATere sb4 Daisy Khan RN RN me1 Yarely Pritchett RN ss12 Corrections: (The following items were deleted from the chart) 18:32 18:31 BASIC METABOLIC PANEL+C.LAB.BRZ ordered. EDMS EDMS 18:32 18:31 CBC+H.LAB.BRZ ordered. EDMS EDMS 18:32 18:31 HEPATIC FUNCTION+C.LAB.BRZ ordered. EDMS EDMS 18:32 18:31 MAGNESIUM+C.LAB.BRZ ordered. EDMS EDMS 18:32 18:31 PROBNP+C.LAB.BRZ ordered. EDMS EDMS 18:32 18:31 PROTIME (+INR)+COAG.LAB.BRZ ordered. EDMS EDMS 18:32 18:31 Troponin High Sensitivity+C.LAB.BRZ ordered. EDMS EDMS 18:32 18:31 THYROID STIMULAT HORMONE+C.LAB.BRZ ordered. EDMS EDMS 18:32 18:32 Chest Single View+RAD.RAD.BRZ ordered. EDMS EDMS
[2025-08-08 05:07] VITALS: TEMP 97.4
[2025-08-08 05:12] VITALS: BP 144/56; O2SAT 98
== END 2025-08-08 00:05 | disposition home or self-care (01) ==
LOC: ER 18:02
DX: I48.0 Paroxysmal atrial fibrillation (principal); I13.0 Hypertensive heart and chronic kidney disease with heart failure and stage 1 through stage 4 chronic kidney disease, or unspecified chronic kidney disease; N18.4 Chronic kidney disease, stage 4 (severe); I50.9 Heart failure, unspecified; Z98.82 Breast implant status
CPT/HCPCS: 36415; 71045; 80048; 80076; 80162; 83735; 83880; 84443; 84484; 85025; 85610; 93005; 93970; 99284